=== PATIENT | female | born 1940 | race Caucasian/White ===

== ENCOUNTER → 2017-04-06 | Outpatient (CLI) | payer OTHER ==
--- NOTE | 2017-04-06 15:22 | MAMMOGRAPHY REPORT ---
BILATERAL DIGITAL SCREENING MAMMOGRAM WITH CAD: 04/06/2017 CLINICAL HISTORY: Routine screening. Patient has no complaints. TECHNIQUE: Current study was also evaluated with a Computer Aided Detection (CAD) system. Bilateral CC and MLO views were obtained. COMPARISON: Comparison is made to exams dated: 03/31/2016 mammogram, 03/26/2015 mammogram, 4 mammogram, 03/06/2014 mammogram, and 03/05/2013 mammogram - [facility]. BREAST COMPOSITION: There are scattered areas of fibroglandular density in both breasts. FINDINGS: No suspicious masses, calcifications, or areas of architectural distortion are noted in ei ther breast. There has been no significant interval change compared to prior exams. IMPRESSION: ACR BI-RADS CATEGORY 1: NEGATIVE There is no mammographic evidence of malignancy. A 1 year screening mammogram is recommended. The pa tient will receive written notification of the results. Approximately 10% of breast cancers are not detected with mammography. A negative mammographic report should not delay biopsy if a clinically suggestive mass is present. Laura Louis M.D. ah/:04/06/2017 12:40:47 [employer]: Oly Buck RT(R)(M), [facility] letter sent: Normal 1/2 BI-RADS Code: ACR BI-RADS Category 1: Negative
== END | disposition home or self-care (01) ==
LOC: C.MAMM 08:41
PROVIDERS: ATTEND Family Medicine
DX: Z12.31 Encounter for screening mammogram for malignant neoplasm of breast (principal)

== ENCOUNTER 2019-01-11 11:33 | Inpatient (IN) ==
[2019-01-11] MEDS ORDERED: SODIUM CHLORIDE 0.9% 500 ML IV SCH (12:00)
[2019-01-11 12:34] LABS: Basophils # (auto) 0.01 K/uL (0-0.2); Basophils % (auto) 0.1 %; Hematocrit (blood only) 37.5 % (37-47); Hemoglobin 12.6 g/dL (12.0-16.0); Immature Granulocytes # (auto) 0.04 K/uL (0.00-0.02); Immature Granulocytes % (auto) 0.3 %; Lymphocytes % (auto) 11.9 %; Mean Corpuscular Hgb Conc 33.6 g/dL (32-36); Mean Corpuscular Volume 88.9 fL (80-100); Mean Platelet Volume 11.6 fL (7.4-10.4); Monocytes # (auto) 1.92 K/uL (0.11-0.59); Monocytes % (auto) 13.5 %; Neutrophils # (auto) 10.58 K/uL (1.4-6.5); Neutrophils % (auto) 74.2 %; Platelet Count 179 K/uL (130-400); RDW Coefficient of Variation 13.8 % (11.5-14.5); RDW Standard Deviation 45.3 fL (36.4-46.3); Red Blood Count 4.22 M/uL (4.2-5.4); White Blood Count 14.25 K/uL (4.8-10.8)
--- NOTE | 2019-01-11 12:38 | Emergency Department Note ---
Entered by Steffany Tanner acting as a scribe for History of Present Illness General Chief complaint: Diarrhea Stated complaint: PAIN IN BACK, WEAK LEGS, DIARRHEA Time Seen by Provider: 01/11/19 11:40 Source: patient History of Present Illness Onset (ago): day(s) 1 Location: abdomen Pain Consistency: + other (persistent) Quality: + other (diarrhea) Associated symptoms: + other (positive intermittent abdominal cramping); no fever/chills and no nausea/vomiting The patient is a 78 year old female who presents to the Emergency Room with complaints of persistent diarrhea that began yesterday. The patient states that she had 3 or 4 episodes during the night, but denies blood in her stool or black stool. She states that she has had intermittent abdominal cramping during this time. The patient denies nausea, vomiting, and fevers. The patient states that no one else in her house has similar symptoms. The patient denies any recent unusual food or travel. She denies a history of C. diff, but states that she was on antibiotics about one week ago. The patient denies any abdominal surgeries. She denies any recent falls. Home Medications Home Medications Medication Instructions Recorded Confirmed Type azithromycin 250 mg PO DIRECTED 01/11/19 01/11/19 History prednisone 10 mg PO DIRECTED 01/11/19 01/11/19 History simvastatin 20 mg PO Q2D 01/11/19 01/11/19 History Allergies Allergy/AdvReac Type Severity Reaction Status Date / Time amoxicillin Allergy Unknown Unverified 01/11/19 12:40 bacitracin AdvReac Unknown Unverified 01/11/19 12:40 [From Triple Antibiotic] neomycin AdvReac Unknown Unverified 01/11/19 12:40 [From Triple Antibiotic] polymyxin B AdvReac Unknown Unverified 01/11/19 12:40 [From Triple Antibiotic] Past Med/Surg History Medical History Hyperlipidemia Family History Other No pertinent family history in first degree relatives Social History Feels Safe at Home: Yes Smoking Status: Never smoker Review of Systems See HPI for pertinent positives & negatives. and A total of 10 systems reviewed and were otherwise negative Physical Exam Vital Signs Vital Signs - 24 hr 01/11/19 11:35 01/11/19 12:13 01/11/19 13:39 Temperature 37.6 C H 38.0 C H Temperature Source Oral Oral Sepsis Recent Fever Within 48 Hours No Sepsis New/Unexplained Change in Mental Status No Sepsis Action Taken by Nursing No Action Required Pulse Rate 88 83 Pulse Rate [Finger] Pulse Rhythm Regular Pulse Rhythm [Finger] Pulse Strength [Finger] Respiratory Rate 18 Respiratory Effort / Characteristics Non-Labored Respiratory Depth Normal Respiratory Pattern Blood Pressure 126/68 Blood Pressure [Right Arm] Blood Pressure Mean 87 Blood Pressure Mean [Right Arm] Blood Pressure Position [Right Arm] Pulse Oximetry 97 98 Oxygen Delivery Method Room Air Room Air 01/11/19 14:38 Temperature Temperature Source Sepsis Recent Fever Within 48 Hours Sepsis New/Unexplained Change in Mental Status Sepsis Action Taken by Nursing Pulse Rate Pulse Rate [Finger] 80 Pulse Rhythm Pulse Rhythm [Finger] Regular Pulse Strength [Finger] Normal Respiratory Rate 18 Respiratory Effort / Characteristics Non-Labored Spontaneous Respiratory Depth Normal Respiratory Pattern Regular Blood Pressure Blood Pressure [Right Arm] 143/74 H Blood Pressure Mean Blood Pressure Mean [Right Arm] 97 Blood Pressure Position [Right Arm] Lying Pulse Oximetry 98 Oxygen Delivery Method Room Air General: Non-ill appearing older female in no acute distress. HEENT: Normal cephalic atraumatic. Pupils are equal round and reactive to light. Extraocular movements are intact. Oropharynx is pink with moist mucous membranes. No swelling of the mouth lips or tongue. Neck: Supple with a midline trachea. No meningeal signs or stiffness, no JVD or bruits. No Stridor. Chest: Clear to auscultation bilaterally. No wheezes or rhonchi. No increased work of breathing. Heart: regular rate and rhythm. Abdomen: Soft nontender, nondistended without rebound guarding or rigidity. Extremities: No cyanosis clubbing or edema. No calf tenderness or asymmetry. She does have some mild pain in the legs bilaterally with palpation peer Spine/Back. Non tender to palpation. No CVA tenderness Skin: Good turgor without rashes. Neurologic exam: Cranial nerves two through 12 are intact. Motor and sensation are intact and symmetrical throughout. She has intact reflexes in lower extremity's bilaterally. Course 1146: Past medical records reviewed. The patient was evaluated in room C3. A co mplete history and physical exam was performed. 1244: Upon reevaluation, the patient appears comfortable. The patient has yet to give a stool sample. 1350: The patient's temperature just went up to about 38 degrees. I ordered her Ibuprofen, more blood work, a CT scan, and a chest x-ray. 1500: I checked on and updated the patient. I recommended that the patient be further evaluated in the hospital. She is in agreement with the treatment plan. 1503: I discussed the case with Bridgette Mitchell PA-C who accepts the patient for further evaluation under Dr. Saldana Hospitalist care. Administered Medications Sodium Chloride (Nss 1000ml) 1,000 mls @ 125 mls/hr IV .Q8H EVELYN Stop: 02/10/19 13:44 Last Admin: 01/11/19 14:37 Dose: 125 mls/hr Documented by: [id number] Discontinued Medications Sodium Chloride (Nss) 500 mls @ 999 mls/hr IV .Q31M EVELYN Stop: 01/11/19 12:30 Last Infusion: 01/11/19 12:38 Dose: 0 mls/hr Documented by: [id number] Admin: 01/11/19 12:07 Dose: 999 mls/hr Documented by: [id number] Ibuprofen (Advil) 400 mg PO NOW STA Stop: 01/11/19 13:46 Last Admin: 01/11/19 14:37 Dose: 400 mg Documented by: [id number] Medical Decision Making Differential Diagnosis Differential diagnoses include diarrhea, dehydration, C. diff, infection, electrolyte or metabolic abnormality, and others were considered. Medical Records Attestation: I reviewed the patient's medical records. Home Medications Current Medication List: was personally reviewed by me Laboratory Data Attestation: I reviewed the patient's lab results. Result diagrams: 01/11/19 12:06 01/11/19 12:06 Lab Results 01/11/19 01/11/19 01/11/19 Range/Units 12:06 12:06 13:30 WBC 14.25 H (4.8-10.8) K/uL RBC 4.22 (4.2-5.4) M/uL Hgb 12.6 (12.0-16.0) g/dL Hct 37.5 (37-47) % MCV 88.9 (80-100) fL MCH 29.9 (25-34) pg MCHC 33.6 (32-36) g/dL RDW Std Deviation 45.3 (36.4-46.3) fL RDW Coeff of Joi 13.8 (11.5-14.5) % Plt Count 179 (130-400) K/uL MPV 11.6 H (7.4-10.4) fL Immature Gran % (Auto) 0.3 % Neut % (Auto) 74.2 % Lymph % (Auto) 11.9 % D[place]key % (Auto) 13.5 % Eos % (Auto) 0.0 % Baso % (Auto) 0.1 % Immature Gran # (Auto) 0.04 H (0.00-0.02) K/uL Neut # (Auto) 10.58 H (1.4-6.5) K/uL Lymph # (Auto) 1.70 (1.2-3.4) K/uL Dickey # (Auto) 1.92 H (0.11-0.59) K/uL Eos # (Auto) 0.00 (0-0.5) K/uL Baso # (Auto) 0.01 (0-0.2) K/uL Sodium 132 L (136-145) mmol/L Potassium 4.2 (3.5-5.1) mmol/L Chloride 100 (98-107) mmol/L Carbon Dioxide 26 (21-32) mmol/L Anion Gap 6.0 (3-11) BUN 16 (7-18) mg/dl Creatinine 0.75 (0.6-1.2) mg/dl Est Cr Clr Drug Dosing Not Reportable Est GFR ( Amer) 87.3 Est GFR (Non-Af Amer) 75.3 BUN/Creatinine Ratio 21.8 H (10-20) Glucose 198 H (70-99) mg/dl Calcium 9.3 (8.5-10.1) mg/dl Total Bilirubin 1.2 H (0.2-1) mg/dl AST 25 (15-37) U/L ALT 23 (12-78) U/L Alkaline Phosphatase 138 H (45-117) U/L Total Protein 7.1 (6.4-8.2) gm/dl Albumin 3.0 L (3.4-5.0) gm/dl Globulin 4.1 H (2.5-4.0) gm/dl Albumin/Globulin Ratio 0.7 L (0.9-2) Lipase 131 (73-393) U/L Urine Color Yellow Urine Appearance Cloudy A (Clear) Urine pH 7.0 (4.5-7.5) Ur Specific [place] 1.019 (1.000-1.030) Urine Protein 1+ H (Negative) Urine Glucose (UA) Trace H (Negative) Urine Ketones 1+ H (Negative) Urine Blood Negative (Negative) Urine Nitrite Negative (Negative) Urine Bilirubin Negative (Negative) Urine Urobilinogen Positive H (Negative) Ur Leukocyte Esterase Negative (Negative) Urine WBC (Auto) 1-5 (0-5) /hpf Urine RBC (Auto) 5-10 H (0-4) /hpf U Hyaline Cast (Auto) 1-5 (0-5) /lpf U Epithel Cells (Auto) 20-30 H (0-5) /lpf Urine Bacteria (Auto) Negative (Negative) Imaging Data Radiologist's Impression: Radiology results as stated below per my review and the radiologist's interpretation: XR chest 1V portable HISTORY: fever COMPARISON: None. FINDINGS: The heart is mildly enlarged. No pleural effusions. No pneumothorax. The upper lung zones are clear. Bibasilar linear densities and interstitial thickening. This is likely chronic. No evidence for pulmonary edema. IMPRESSION: Mild cardiomegaly and bibasilar interstitial thickening. This is likely chronic. Electronically signed by: John Young M.D. 01/11/2019 2:08 PM ABDOMEN AND PELVIS CT WITHOUT CONTRAST CT DOSE: 509.44 mGy.cm HISTORY: fever, diarrhea, abd pain TECHNIQUE: Multiaxial CT images of the abdomen and pelvis were performed without contrast. A dose lowering technique was utilized adhering to the principles of ALARA. COMPARISON STUDY: None. FINDINGS: Partially visualized hypodense lesion within the anterior mediastinum and extending along the left heart border. This measures up to 7.3 cm. This favors a thymic or pericardial cyst. Groundglass densities at the lung bases. These are nonspecific and may represent dependent change or a low-grade pneumonitis. No pneumoperitoneum. No pneumatosis. Old mild superior endplate compression deformity at T11. No acute fractures identified. A 4 cm calcified uterine fibroid. The bladder is unremarkable. Nodular contour to the liver consistent with cirrhosis. The unenhanced spleen, adrenal glands, gallbladder, and pancreas are unremarkable. Mild bilateral perinephric edema. This is likely chronic. There is a punctate stone within the right kidney. No left renal calculi. No hydronephrosis. No retroperitoneal lymphadenopathy. Suboptimal evaluation for bowel pathology due to the lack of intravenous and oral contrast. However, there is no definite bowel wall thickening or obstruction. Normal appendix. A few colonic diverticula. No evidence for diverticulitis. IMPRESSION: 1. Groundglass densities at the lung bases. These are nonspecific and may represent dependent change or a low-grade pneumonitis. 2. No definite bowel wall thickening or obstruction. 3. A partially visualized 7.3 cm hypodense lesion within the anterior mediastinum extending along the left heart border. This favors a thymic or pericardial cyst. 4. Right-sided nephrolithiasis. No hydronephrosis. 5. Normal appendix. 6. Cirrhotic liver. Electronically signed by: John Young M.D. 01/11/2019 2:45 PM Blood Pressure Blood Pressure Findings: Normal blood pressure MDM Narrative This patient comes in as described above she had diarrhea since yesterday. No blood in her stool. No sick contacts or recent travel. No fever or chills. S he did use antibiotics a couple weeks ago but has no previous history of C. difficile. IV access established she was ordered IV hydration. Blood work was obtained her white count is mildly elevated 14,000. Stool studies ordered as well including C. difficile. She was unable to provide a stool sample and then while she was here she also spiked a temperature in light of this I did have blood cultures and lactic acid. She complains that her legs hurt when she moves. She also has a fever that could be contributing to this. She seems diffusely weak in the legs but I think it is mostly secondary to pain. Her white count was elevated 14. Urinalysis does not suggest a UTI. She is no significant electrolyte or metabolic abnormalities. CAT scan of her abdomen shows some chronic findings but no acute findings to explain her symptoms. Chest x-ray was negative. I did not give her antibiotics at this point as she did have diarrhea and I was concerned that it could be C. difficile. She will need further work-up. In regards her leg pain, this may need further work-up. I do not think that this is a blood clot, she has no tenderness in her calves and is both legs. It may be more myalgias from having a fever or illness. I do not think it is likely related to her back such as epidural abscess but she may need further imaging in the hospital if deemed necessary or her symptoms worsen. I do think she should be admitted/observed and have consulted the hospitalist to see her in the ER for these measures. Impression & Plan Febrile illness, Diarrhea, Weakness, Bilateral leg pain Discharge Plan Visit Data Chief Complaint: Diarrhea Stated Complaint: PAIN IN BACK, WEAK LEGS, DIARRHEA ED Provider: Matt Herron Discharge Problem: Febrile illness, Diarrhea, Weakness, Bilateral leg pain Patient Disposition: Being Evaluated by Hospitalist Forms Stand Alone Forms: My [facility] Prescriptions Prescriptions: No Action prednisone 10 mg tablet 10 mg PO DIRECTED RF: 0 azithromycin 250 mg tablet 250 mg PO DIRECTED RF: 0 simvastatin 20 mg tablet 20 mg PO Q2D RF: 0 Referrals Referrals: Gigi Sarmiento MD [Primary Care Provider] - Discharge Problem: Diarrhea Qualifiers: Diarrhea type: unspecified type Qualified Code(s): R19.7 - Diarrhea, unspecified The scribe's documentation has been prepared under my direction and personally reviewed by me in its entirety. I confirm that the note above accurately reflects all work, treatment, procedures, and medical decision making performed by me.
[2019-01-11 12:52] LABS: Alanine Aminotransferase 23 U/L (12-78); Aspartate Aminotransferase 25 U/L (15-37); BUN Creatinine Ratio 21.8 (10-20); Blood Urea Nitrogen 16 mg/dl (7-18); Calcium 9.3 mg/dl (8.5-10.1); Carbon Dioxide 26 mmol/L (21-32); Chloride 100 mmol/L (98-107); Est GFR (African American) 87.3; Est GFR (Non-African American) 75.3; Glucose 198 mg/dl (70-99); Potassium 4.2 mmol/L (3.5-5.1); Sodium 132 mmol/L (136-145)
[2019-01-11 12:54] LABS: Albumin Globulin Ratio 0.7 (0.9-2); Alkaline Phosphatase 138 U/L (45-117); Bilirubin,Total 1.2 mg/dl (0.2-1); Globulin 4.1 gm/dl (2.5-4.0); Total Protein 7.1 gm/dl (6.4-8.2)
[2019-01-11] MEDS ORDERED: IBUPROFEN 200 MG TAB PO STA (13:45)
[2019-01-11] MEDS ORDERED: SODIUM CHLORIDE 0.9% 1000ML 1,000 ML IV SCH ×2 (13:45→18:30)
[2019-01-11 13:47] LABS: Appearance Urine Cloudy (Clear); Bacteria Urine Automated Negative (Negative); Bilirubin Urine Negative (Negative); Blood Urine Negative (Negative); Color Urine Yellow; Epithelial Cell Urine Auto 20-30 /lpf (0-5); Glucose Urine UA Trace (Negative); Ketones Urine 1+ (Negative); Leukocyte Esterase Urine Negative (Negative); Nitrite Urine Negative (Negative); Protein Urine 1+ (Negative); Specific Gravity Urine 1.019 (1.000-1.030); Urobilinogen Urine Positive (Negative)
--- NOTE | 2019-01-11 14:10 | XRay Report ---
XR chest 1V portable HISTORY: fever COMPARISON: None. FINDINGS: The heart is mildly enlarged. No pleural effusions. No pneumothorax. The upper lung zones a re clear. Bibasilar linear densities and interstitial thickening. This is likely chronic. No evidence for pulmonary edema. IMPRESSION: Mild cardiomegaly and bibasilar interstitial thickening. This is likely chronic. Electronically signed by: John Young M.D. 01/11/2019 2:08 PM
--- NOTE | 2019-01-11 14:46 | CT Scan Report ---
ABDOMEN AND PELVIS CT WITHOUT CONTRAST CT DOSE: 509.44 mGy.cm HISTORY: fever, diarrhea, abd pain TECHNIQUE: Multiaxial CT images of the abdomen and pelvis were performed without contrast. A dose lo wering technique was utilized adhering to the principles of ALARA. COMPARISON STUDY: None. FINDINGS: Partially visualized hypodense lesion within the anterior mediastinum and extending along t he left heart border. This measures up to 7.3 cm. This favors a thymic or pericardial cyst. Groundgla ss densities at the lung bases. These are nonspecific and may represent dependent change or a low-gra de pneumonitis. No pneumoperitoneum. No pneumatosis. Old mild superior endplate compression deformity at T11. No acute fractures identified. A 4 cm calcified uterine fibroid. The bladder is unremarkable . Nodular contour to the liver consistent with cirrhosis. The unenhanced spleen, adrenal glands, gall bladder, and pancreas are unremarkable. Mild bilateral perinephric edema. This is likely chronic. The re is a punctate stone within the right kidney. No left renal calculi. No hydronephrosis. No retroper itoneal lymphadenopathy. Suboptimal evaluation for bowel pathology due to the lack of intravenous and oral contrast. However, there is no definite bowel wall thickening or obstruction. Normal appendix. A few colonic diverticula. No evidence for diverticulitis. IMPRESSION: 1. Groundglass densities at the lung bases. These are nonspecific and may represent dependent change or a low-grade pneumonitis. 2. No definite bowel wall thickening or obstruction. 3. A partially visualized 7.3 cm hypodense lesion within the anterior mediastinum extending along the left heart border. This favors a thymic or pericardial cyst. 4. Right-sided nephrolithiasis. No hydronephrosis. 5. Normal appendix. 6. Cirrhotic liver. Electronically signed by: John Young M.D. 01/11/2019 2:45 PM
--- NOTE | 2019-01-11 16:11 | History & Physical Report ---
Date of Service January 11, 2019 Assessment & Plan (1) Fever: (2) Back pain: (3) Bilateral leg pain: Patient presented with onset low back pain 3 days ago with bilateral leg pain and BLE weakness. Difficulty ambulating. C/O chills x couple of days. Reports 4 episodes of diarrhea last night with stool incontinence. Denies urinary incontinence, saddle paresthesias In ER patient febrile at 38C, P: 88, R: 18, BP: 126/68, 97% on RA. WBC: 14, lactate: 1.0 Meet SIRS criteria -In ER was given ibuprofen, 500 mL bolus NSS then ran out 125 mL/hr -Blood cultures pending -Obtain CK as patient on statin -MRI lumbar spine rule out spinal abscess -Rocephin, vancomycin -Fall precautions -PT/OT -Monitor CBC, CMP (4) Diarrhea: Reported 4 episodes of diarrhea last night. Took Pepto-Bismol this morning and no further diarrhea. Denies abdominal pain. CT abdomen and pelvis without noted bowel abnormality -Obtain C. difficile, stool culture if continued diarrhea -Clear liquids for now (5) Hyperglycemia: Glucose: 198. Patient recently finished prednisone taper for congestion -A1c in a.m. -Monitor BSG's -NovoLog sliding scale per protocol (6) Mediastinal mass: CT abdomen/pelvis: A partially visualized 7.3 cm hypodense lesion within the anterior mediastinum extending along the left heart border. This favors a thymic or pericardial cyst. -Further outpatient work-up (7) Asthma: No shortness of breath, wheezing -Continue albuterol as needed (8) Dyslipidemia: -Hold statin currently pending CK DVT Prophylaxis -Lovenox SQ Full Code as per discussion with pt, however reports wants limited resuscitation attempt and if initially not successful wants to discontinue attempt. Follows with Dr Sarmiento for routine care Pt was seen and care coordinated with Dr Lewis. See addendum History of Present Illness Chief Complaint: BLE pain and weakness Primary Care Provider: Gigi Sarmiento MD Pt is 78 y/o F with PMH asthma, dyslipidemia presented to ER with c/o BLE pain and weakness x 3 days. Patient states started out with low back pain and then the following day with bilateral hip and leg pain. Today with pain from bilateral knees to feet. Patient states her legs feel weak and she is having trouble ambulating and needing assistance. Today she was unable to get herself out of chair. Reports today noticed some paresthesias to left foot however relieved after she took her shoe off. Patient states last night started with diarrhea and had 4-5 episodes and reports during that time had bowel incontinence. She took Pepto-Bismol today and no further diarrhea. Denies urinary incontinence, denies saddle paresthesias. Patient reports past several days has been having chills and LUCAS's. She reports taking her temperature not noting any fever. Pt states on 12/30/18 took Z-pack and prednisone for congestion. She reports didn't have a cough however "spit" out phlegm. Denies SOB or wheezing at that time or recently. Denies any other recent illnesses. 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 Denies any noted injury and denies any falls. Denies any hx back surgery. Denies recent travel, ill contacts, known insect bites. Denies diaphoresis, N/V, melena, hematochezia, dizziness, syncope, vision changes, neck pain, CP, SOB, orthopnea, palpitations, cough, sore throat, choking, otalgia, abdominal pain, extremity edema, rashes, urinary symptoms. Allergies Allergy/AdvReac Type Severity Reaction Status Date / Time amoxicillin Allergy Unknown Unverified 01/11/19 12:40 bacitracin AdvReac Unknown Unverified 01/11/19 12:40 [From Triple Antibiotic] neomycin AdvReac Unknown Unverified 01/11/19 12:40 [From Triple Antibiotic] polymyxin B AdvReac Unknown Unverified 01/11/19 12:40 [From Triple Antibiotic] Home Medications Home Medications Medication Instructions Recorded Confirmed Type albuterol sulfate 2 puff INHALATION QID PRN 01/11/19 01/11/19 History azithromycin 250 mg PO DIRECTED 01/11/19 01/11/19 History prednisone 10 mg PO DIRECTED 01/11/19 01/11/19 History simvastatin 20 mg PO Q2D 01/11/19 01/11/19 History Past Med/Surg History Medical History Asthma (Chronic) Dyslipidemia (Chronic) Hyperlipidemia Surgical History History of cataract surgery (Chronic) Hx of tonsillectomy (Chronic) Family History Grandmother (Maternal) Stroke Father Lung cancer Mother Liver cancer Other Diabetes Social History Preferred Language: Lithuanian 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 Beliefs That Will Affect Care: None Current Living Situation: Spouse and Family Other Information That Helps Us Care for You: No Feels Safe at Home: Yes Safety Concerns: Feels Safe At This Time Smoking Status: Never smoker Hx Alcohol Use: No Hx Substance Use: No Review of Systems Review of Systems: All systems reviewed & are unremarkable except as noted in HPI & below Physical Exam Physical Exam: General: no acute distress, WDWN Head: normocephalic, atraumatic Eyes: PERRL, EOM's intact, conjunctiva non-injected, anicteric ENT: hard of hearing, normal inspection external ears, nose, mucous membranes dry Neck: supple, trachea midline, non-tender, ROM intact to flexion, extension and rotation Lungs: clear, no respiratory distress, no wheezing/rhonchi/rales CV: RRR, no murmur, no pretibial edema Abd: normal BS, soft, non-tender, no CVA tenderness to percussion Back: no discoloration, +tenderness to palpation lower lumbar spinous processes, limited movement of back secondary to discomfort Ext: no cyanosis or erythema, Bilateral hips with flexion and internal and external rotation intact with tenderness reproduced to lower legs. No hip tende rness to palpation, flexion and extension of bilateral knees intact with pain reproduced to knees and calves; distal pulses palpable, sensation to light touch intact and equal bilaterally Neuro: A&O x 3, no focal deficits noted, normal affect Skin: hot, dry Results & Data Vital Signs (Past 12 Hours) Vital Signs Temp Pulse Pulse Resp BP BP Pulse Ox 01/11/19 14:38 80 18 143/74 H 98 01/11/19 13:39 38.0 C H 01/11/19 12:13 83 98 01/11/19 11:35 37.6 C H 88 18 126/68 97 Laboratory Results Short CBC 01/11/19 Range/Units 12:06 WBC 14.25 H (4.8-10.8) K/uL Hgb 12.6 (12.0-16.0) g/dL Hct 37.5 (37-47) % Plt Count 179 (130-400) K/uL BMP 01/11/19 12:06 Sodium 132 L Potassium 4.2 Chloride 100 Carbon Dioxide 26 BUN 16 Creatinine 0.75 Glucose 198 H Calcium 9.3 Cardiac Enzymes 01/11/19 Range/Units 12:06 Total Creatine Kinase 15 L (26-192) U/L Liver Function 01/11/19 Range/Units 12:06 Total Bilirubin 1.2 H (0.2-1) mg/dl AST 25 (15-37) U/L ALT 23 (12-78) U/L Alkaline Phosphatase 138 H (45-117) U/L Albumin 3.0 L (3.4-5.0) gm/dl Urine 01/11/19 Range/Units 13:30 Urine Color Yellow Urine Appearance Cloudy A (Clear) Urine pH 7.0 (4.5-7.5) Ur Specific [place] 1.019 (1.000-1.030) Urine Protein 1+ H (Negative) Urine Glucose (UA) Trace H (Negative) Diagnostic Findings CXR: IMPRESSION: Mild cardiomegaly and bibasilar interstitial thickening. This is likely chronic. CT ABD/PEVLIS W/O CONTRAST IMPRESSION: 1. Groundglass densities at the lung bases. These are nonspecific and may represent dependent change or a low-grade pneumonitis. 2. No definite bowel wall thickening or obstruction. 3. A partially visualized 7.3 cm hypodense lesion within the anterior mediastinum extending along the left heart border. This favors a thymic or pericardial cyst. 4. Right-sided nephrolithiasis. No hydronephrosis. 5. Normal appendix. 6. Cirrhotic liver. Supervising Physician Co-Signing Physician Notes I have seen and examined the patient and have discussed the case with the provider above. I agree with the assessment and plan as stated. 78 yo female with a strong, active disposition presented reluctantly with severe leg pain and weakness unable to walk at home. She appeared dehydrated to her granddaughter who lives with her. She reports excessive diarrhea that was watery overnight. Water source at the house is a reservoir of untreated water from a natural spring. She ate homemade chicken soup with canned chicken. Everyone else who ate the soup was not ill. She has not had diarrhea in several hours and is feeling better since the IVF given in the ER. She reports a resolution of her lower back pain but states that her legs are still painful and weak. She hasn't had issues with back pain in the past. She also reports two days of chills but no fever and her temperature is borderline in the ER. Differential included but was not limited to spinal infection such as discitis, osteomyelitis or epidural abscess, lumbar disc hermiation, arthritis flare, or repetitive motion injury. We also considered myalgias from statin therapy and Guillain Ida after recent illness, however, CK was normal and she had reflexes with the etiology of symptoms starting in her back and working distally. Prior to the MRI she was started on Vanc and Cetriaxone, but after the MRI returned negative for infection and she appeared clinically better with the IVF, the antibiotics were stopped. Will cont to monitor and have Ortho Spine see her in am. PT/OT consults are also ordered. DO Joshua (1) Diarrhea Diarrhea type: unspecified type Qualified Code(s): R19.7 - Diarrhea, unspecified
[2019-01-11] MEDS ORDERED: CONSULT PHARMACY STA (17:02)
[2019-01-11 17:07] LABS: Creatine Kinase 15 U/L (26-192)
[2019-01-11] MEDS ORDERED: ACETAMINOPHEN 325 MG TAB PO PRN (18:04)
[2019-01-11] MEDS ORDERED: ALBUTEROL HFA 8 GM INHALER INH PRN (18:04)
[2019-01-11] MEDS ORDERED: GADOBUTROL 7.5ML VIAL IV PRN (18:20)
[2019-01-11] MEDS ORDERED: PATIENT'S HEIGHT AND/OR WEIGHT NEEDED SCH (18:45)
[2019-01-11] MEDS ORDERED: VANCOMYCIN HCL 1,500 MG in SODIUM CHLORIDE 0.9% 500 ML IV STA (18:53)
[2019-01-11] MEDS ORDERED: VANCOMYCIN CONSULT ACTIVE PRN (18:54)
[2019-01-11] MEDS ORDERED: DEXTROSE 50% 50 ML SYRINGE IV PRN (19:02)
[2019-01-11] MEDS ORDERED: GLUCOSE 10 TABS/TUBE PO PRN (19:02)
[2019-01-11] MEDS ORDERED: GLUCOSE 40% GEL 15 GM TUBE PO PRN (19:02)
[2019-01-11] MEDS ORDERED: CARBOHYDRATES FOR HYPOGLYCEMIA PO PRN (19:02)
[2019-01-11] MEDS ORDERED: GLUCAGON FOR INJ 1 MG VIAL SQ PRN (19:02)
--- NOTE | 2019-01-11 19:36 | Magnetic Resonance Report ---
MR lumbar spine wo/w con CLINICAL HISTORY: 78 years-old Female with back pain, fever. Acute low back pain with fever COMPARISON: CT abdomen and pelvis of same day TECHNIQUE: Multiplanar, multi sequence MRI of the lumbar spine was performed both with and without th e use of 6.5 mL Gadavist FINDINGS: Mildly distended urinary bladder lumen. No acute abnormalities identified on the large lengi-fo-cpwe warranty coordinator localizer images. Heterogeneous appearance of the uterine fundus suggestive of uterine fibroids . No acute fracture or subluxation. L4 vertebral body hemangioma extends into the right pedicle measu ring up to 1.3 cm. Mild soft tissue edema with synovial cysts noted at L3-L4, L4-L5 and L5-S1. Additi onally, there is mild bone marrow edema about the right L3-L4 facets. There is mild enhancement about the right L3-L4 facet effusion. Nonspecific enhancement about the L1-L2 interspinous tissues No evid ence of acute discitis/osteomyelitis or acute fracture. Remote superior endplate compression of appro ximately 20% involves the T11 vertebral body. 5 mm anterolisthesis L4 on L5 is likely secondary to lo ng-standing facet arthrosis. Conus medullaris terminates at T12. Signal within the imaged thoracic sp inal cord and cauda equina appears to be within normal limits. T12-L1: Mild intervertebral disc space narrowing with moderate facet arthrosis. No central canal or foraminal narrowing. L1-L2: Mild spondylitic spurring with moderate facet arthrosis and ligamentum flavum thickening with trace facet effusions. Central canal and neuroforamina appear generally patent. L2-L3: Mild disc space narrowing with spondylitic spurring, small posterior annular disc bulge with severe facet arthrosis, ligamentum flavum thickening and trace facet effusions. Flattening of the lisa tral thecal sac without concentric canal stenosis. Mild bilateral foraminal narrowing. L3-L4: Mild disc space narrowing with anterolisthesis as above. Spondylitic spurring with circumfere ntial annular disc bulge, ligament of the thickening, severe facet arthrosis with trace facet effusio ns. AP dimension of the thecal sac measures 7 mm. Moderate central canal with mild bilateral foramina l narrowing. L4-L5: Mild disc space narrowing with circumferential annular disc bulge, mild spondylitic spurring, severe facet arthrosis with ligamentum flavum thickening. Small left and trace right facet effusions . Small right paracentral disc protrusion. Moderate to severe central canal stenosis with moderate ri ght lateral recess, mild to moderate right and moderate left foraminal narrowing. L5-S1: Mild spondylitic spurring with severe facet arthrosis. No central canal or foraminal narrowin g. IMPRESSION: 1. No acute fracture, subluxation or evidence of acute discitis/osteomyelitis. 2. Mild soft tissue and bone marrow edema about the right L3-L4 facet with trace effusion demonstrati ng peripheral enhancement, likely on a degenerative/reactive basis. Acute septic facet arthrosis cons idered less likely. 3. Multilevel discogenic degenerative changes and facet arthrosis as above. 4. Moderate L3-L4 with moderate to severe L4-L5 central canal stenosis. 5. Multilevel foraminal narrowing, moderate on the left at L4-L5. The above report was generated using voice recognition software. It may contain grammatical, syntax o r spelling errors. Electronically signed by: Jeyson Dumont M.D. 01/11/2019 7:34 PM
--- NOTE | 2019-01-11 19:50 | Pharmacy Report ---
Pharmacy Abx Dose Short Note - Date of Service January 11, 2019 - Assessment & Plan Assessment Pt is ordered vancomycin and Rocephin with an empiric indication. Pt population p'kinetics: t1/2=15, ke 0.0459. No trough ordered, please order a trough if treatment is to continue. Plan Vancomycin * 1500mg(23mg/kg) IV x1 * then vancomycin (15mg/kg) q18, 48hr d/c date * no trough ordered Pharmacy will continue to follow and will adjust dose/frequency as necessary. Thank you.
[2019-01-11] MEDS: cefTRIAXone SODIUM 2,000 MG in DEXTROSE 5% 50 ML IV SCH ×2 (20:13→20:17)
[2019-01-11] MEDS: INSULIN ASPART 100 UNITS/ML 3 ML PEN SC SCH (20:18)
[2019-01-11] MEDS ORDERED: TRAMADOL HCL 50 MG TABLET PO PRN (20:38)
[2019-01-11] MEDS: CALCIUM CARBONATE 500 MG CHEWABLE TAB PO PRN (20:56)
[2019-01-11] MEDS ORDERED: cefTRIAXone SODIUM 2,000 MG in DEXTROSE 5% 50 ML IV SCH (21:00)
[2019-01-11] MEDS: ACETAMINOPHEN 500 MG TAB PO SCH (21:31)
[2019-01-12] MEDS: ACETAMINOPHEN 500 MG TAB PO SCH (06:32)
[2019-01-12 07:24] LABS: Basophils # (auto) 0.02 K/uL (0-0.2); Basophils % (auto) 0.2 %; Eosinophils # (auto) 0.03 K/uL (0-0.5); Eosinophils % (auto) 0.3 %; Hematocrit (blood only) 37.8 % (37-47); Hemoglobin 12.6 g/dL (12.0-16.0); Immature Granulocytes # (auto) 0.04 K/uL (0.00-0.02); Immature Granulocytes % (auto) 0.4 %; Lymphocytes % (auto) 15.5 %; Mean Corpuscular Hgb Conc 33.3 g/dL (32-36); Mean Platelet Volume 11.3 fL (7.4-10.4); Monocytes # (auto) 1.48 K/uL (0.11-0.59); Monocytes % (auto) 15.3 %; Neutrophils # (auto) 6.59 K/uL (1.4-6.5); Neutrophils % (auto) 68.3 %; Platelet Count 160 K/uL (130-400); RDW Coefficient of Variation 13.8 % (11.5-14.5); RDW Standard Deviation 45.8 fL (36.4-46.3); White Blood Count 9.66 K/uL (4.8-10.8)
[2019-01-12 07:51] LABS: Albumin Level 2.8 gm/dl (3.4-5.0); BUN Creatinine Ratio 19.5 (10-20); Calcium 9.4 mg/dl (8.5-10.1); Creatinine Clr Calc Pharmacy 59.7 ml/min; Est GFR (African American) 99.8; Est GFR (Non-African American) 86.1; Potassium 3.9 mmol/L (3.5-5.1)
[2019-01-12 08:04] LABS: Albumin Globulin Ratio 0.7 (0.9-2); Total Protein 6.8 gm/dl (6.4-8.2)
[2019-01-12] MEDS: CALCIUM CARBONATE 500 MG CHEWABLE TAB PO PRN (08:28)
[2019-01-12] MEDS: INSULIN ASPART 100 UNITS/ML 3 ML PEN SC SCH (08:31)
--- NOTE | 2019-01-12 11:58 | Orthopedic Consultation ---
Date of Consultation January 12, 2019 Assessment & Plan (1) Spinal stenosis, lumbar region with neurogenic claudication: I discussed with the patient and family her MRI findings. She has severe spinal stenosis L3-4 moderate to severe stenosis L4-5 with evidence of instability. I described to the family that this is most likely the etiology of her symptoms. Her excessive activity over the past week clearly exacerbated her underlying condition. If the symptoms return to have her see an interventional pain management physician for possible epidural injections but ultimately she may require surgical decompression and fusion. Present on Admission?: Yes History of Present Illness Reason for Consultation: Back and bilateral leg pain with weakness Attending Physician: Lasha Antoine MD History of Present Illness This is a very active 78-year-old female. She presents with 3 to 4 days of decline in status beginning with back pain and subsequent lower extremity weakness. She was admitted yesterday and underwent evaluation. Today she states she is been up and ambulating the halls with a therapist and feels markedly improved. She denies any back pain this morning. She denies any leg pain this morning. Her family is at the bedside and helps provide accurate h istory. 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 Allergies Allergy/AdvReac Type Severity Reaction Status Date / Time amoxicillin Allergy Unknown Unverified 01/11/19 12:40 bacitracin AdvReac Unknown Unverified 01/11/19 12:40 [From Triple Antibiotic] neomycin AdvReac Unknown Unverified 01/11/19 12:40 [From Triple Antibiotic] polymyxin B AdvReac Unknown Unverified 01/11/19 12:40 [From Triple Antibiotic] Home Medications Home Medications Medication Instructions Recorded Confirmed Type albuterol sulfate 2 puff INHALATION QID PRN 01/11/19 01/11/19 History azithromycin 250 mg PO DIRECTED 01/11/19 01/11/19 History prednisone 10 mg PO DIRECTED 01/11/19 01/11/19 History simvastatin 20 mg PO Q2D 01/11/19 01/11/19 History Patient History Medical History Asthma (Chronic) Dyslipidemia (Chronic) Hyperlipidemia Surgical History History of cataract surgery (Chronic) Hx of tonsillectomy (Chronic) Family History Grandmother (Maternal) Stroke Father Lung cancer Mother Liver cancer Other Diabetes Social History Preferred Language: [place] Korean Communication Ability: Effective Stock 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 She is regional strength testing lower extremities. Results & Data Vital Signs (Past 12 Hours) Vital Signs Temp Pulse Resp BP Pulse Ox 01/12/19 07:41 36.5 C 67 20 138/74 96
[2019-01-12] MEDS ORDERED: VANCOMYCIN HCL 1,000 MG in SODIUM CHLORIDE 0.9% 250 ML IV SCH (12:00)
--- NOTE | 2019-01-12 12:31 | Hospitalist Progress Note ---
Date of Service January 12, 2019 Assessment & Plan (1) Fever: (2) Back pain: (3) Bilateral leg pain: Patient presented with onset low back pain 3 days ago with bilateral leg pain and BLE weakness. Difficulty ambulating. C/O chills x couple of days. Reports 4 episodes of diarrhea last night with stool incontinence. Denies urinary incontinence, saddle paresthesias In ER patient febrile at 38C, P: 88, R: 18, BP: 126/68, 97% on RA. WBC: 14, lactate: 1.0 Meet SIRS criteria MRI lumbar spine: IMPRESSION: 1. No acute fracture, subluxation or evidence of acute discitis/osteomyelitis. 2. Mild soft tissue and bone marrow edema about the right L3-L4 facet with trace effusion demonstrating peripheral enhancement, likely on a degenerative/reactive basis. Acute septic facet arthrosis considered less likely. 3. Multilevel discogenic degenerative changes and facet arthrosis as above. 4. Moderate L3-L4 with moderate to severe L4-L5 central canal stenosis. 5. Multilevel foraminal narrowing, moderate on the left at L4-L5. evaluated by Ortho Spine- Dr. Mcdermott recommend conservative management for now, but may eventually need epidural injection by Pain Management Service or ultimately, Surgery symptoms resolved on discharge day patient and family requesting discharge advised PRN Tylenol, Ibuprofen (1-2x /day) no heavy exertion ff up with PCP this week (4) Diarrhea: Reported 4 episodes of diarrhea overnight. Took Pepto-Bismol this morning and no further diarrhea. Denies abdominal pain. CT abdomen and pelvis without noted bowel abnormality C diff stool : negative diarrhea resolved (5) Hyperglycemia: Glucose: 198. Patient recently finished prednisone taper for congestion -A1c : pending (6) Mediastinal mass: CT abdomen/pelvis: A partially visualized 7.3 cm hypodense lesion within the anterior mediastinum extending along the left heart border. This favors a thymic or pericardial cyst. -Further outpatient work-up (7) Asthma: No shortness of breath, wheezing -Continue albuterol as needed (8) Dyslipidemia: on Statin discussed case with patient and family re: plan of care recommended at least 1 more night of observation they requested to be discharged today all questions answered, they are understanding, agreeable and comfortable with the plan of care Subjective ff up for back pain seen sitting up in bed, in good spirits family members at the bedside patient states she feels much better overall denies back pain, lower extremity pain or weakness denies cough, dyspnea, chest pain no fever/chills, abdominal pain, nausea, changes with urination or BM states she is back to her baseline states she is ready and would like to be discharged today family agrees Review of Systems Review of Systems: All systems reviewed & are unremarkable except as noted in HPI & below Physical Exam Physical Exam: General- oriented x 3, not in distress, speaks in sentences with no effort or accessory muscle use Head- atraumatic Eyes- PERRL, EOMI, anicteric ENT- oropharynx clear Neck- supple, no JVD, no adenopathy, no thyromegaly; carotids +2/2, no bruits appreciated Lungs- clear to auscultation bilaterally, no rales/wheezes Heart- normal rate, regular rhythm; no murmur, no gallop, no rub appreciated Abdomen- normal bowel sounds, nondistended, soft, nontender, no masses or hepatosplenomegaly Extremities- no pretibial edema, no calf tenderness; peripheral pulses intact Neuro- alert, oriented x 3; CN 2-12 grossly intact; motor 5/5 bilaterally;sensation 100% on all extremities; no other gross focal neurologic deficits Skin- warm & dry Results & Data Vital Signs (Past 12 Hours) Vital Signs Temp Pulse Resp BP Pulse Ox 01/12/19 07:41 36.5 C 67 20 138/74 96 Laboratory Results Laboratory Results - last 24 hr 01/11/19 01/12/19 01/12/19 20:04 06:30 06:30 WBC RBC Hgb Hct MCV MCH MCHC RDW Std Deviation RDW Coeff of Joi Plt Count MPV Immature Gran % (Auto) Neut % (Auto) Lymph % (Auto) [place] % (Auto) Eos % (Auto) Baso % (Auto) Immature Gran # (Auto) Neut # (Auto) Lymph # (Auto) [place] # (Auto) Eos # (Auto) Baso # (Auto) Sodium Potassium Chloride Carbon Dioxide Anion Gap BUN Creatinine Est Cr Clr Drug Dosing Est GFR ( Amer) Est GFR (Non-Af Amer) BUN/Creatinine Ratio Glucose POC Glucose 163 H Estimat Average Glucose Hemoglobin A1c Calcium Total Bilirubin AST ALT Alkaline Phosphatase Total Protein Albumin Globulin Albumin/Globulin Ratio Stl C. diff Tox B Gene Negative Cdiff Gene Giardia Antigen Pending 01/12/19 01/12/19 01/12/19 06:59 06:59 06:59 WBC 9.66 RBC 4.20 Hgb 12.6 Hct 37.8 MCV 90.0 MCH 30.0 MCHC 33.3 RDW Std Deviation 45.8 RDW Coeff of Joi 13.8 Plt Count 160 MPV 11.3 H Immature Gran % (Auto) 0.4 Neut % (Auto) 68.3 Lymph % (Auto) 15.5 [place] % (Auto) 15.3 Eos % (Auto) 0.3 Baso % (Auto) 0.2 Immature Gran # (Auto) 0.04 H Neut # (Auto) 6.59 H Lymph # (Auto) 1.50 [place] # (Auto) 1.48 H Eos # (Auto) 0.03 Baso # (Auto) 0.02 Sodium 139 D Potassium 3.9 Chloride 108 H Carbon Dioxide 26 Anion Gap 5.0 BUN 12 Creatinine 0.60 Est Cr Clr Drug Dosing 59.7 Est GFR ( Amer) 99.8 Est GFR (Non-Af Amer) 86.1 BUN/Creatinine Ratio 19.5 Glucose 117 H POC Glucose Estimat Average Glucose Pending Hemoglobin A1c Pending Calcium 9.4 Total Bilirubin 1.0 AST 44 H ALT 33 Alkaline Phosphatase 142 H Total Protein 6.8 Albumin 2.8 L Globulin 4.0 Albumin/Globulin Ratio 0.7 L Stl C. diff Tox B Gene Giardia Antigen 01/12/19 01/12/19 07:53 11:49 WBC RBC Hgb Hct MCV MCH MCHC RDW Std Deviation RDW Coeff of Joi Plt Count MPV Immature Gran % (Auto) Neut % (Auto) Lymph % (Auto) [place] % (Auto) Eos % (Auto) Baso % (Auto) Immature Gran # (Auto) Neut # (Auto) Lymph # (Auto) [place] # (Auto) Eos # (Auto) Baso # (Auto) Sodium Potassium Chloride Carbon Dioxide Anion Gap BUN Creatinine Est Cr Clr Drug Dosing Est GFR ( Amer) Est GFR (Non-Af Amer) BUN/Creatinine Ratio Glucose POC Glucose 106 H 79 Estimat Average Glucose Hemoglobin A1c Calcium Total Bilirubin AST ALT Alkaline Phosphatase Total Protein Albumin Globulin Albumin/Globulin Ratio Stl C. diff Tox B Gene Giardia Antigen (1) Diarrhea Diarrhea type: unspecified type Qualified Code(s): R19.7 - Diarrhea, unspecified
--- NOTE | 2019-01-12 17:15 | Discharge Summary ---
Date of Service January 12, 2019 Admission HPI Per Admitting Provider Pt is 78 y/o F with PMH asthma, dyslipidemia presented to ER with c/o BLE pain and weakness x 3 days. Patient states started out with low back pain and then the following day with bilateral hip and leg pain. Today with pain from bilateral knees to feet. Patient states her legs feel weak and she is having trouble ambulating and needing assistance. Today she was unable to get herself out of chair. Reports today noticed some paresthesias to left foot however relieved after she took her shoe off. Patient states last night started with diarrhea and had 4-5 episodes and reports during that time had bowel incontine nce. She took Pepto-Bismol today and no further diarrhea. Denies urinary incontinence, denies saddle paresthesias. Patient reports past several days has been having chills and LUCAS's. She reports taking her temperature not noting any fever. Pt states on 12/30/18 took Z-pack and prednisone for congestion. She reports didn't have a cough however "spit" out phlegm. Denies SOB or wheezing at that time or recently. Denies any other recent illnesses. 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 Denies any noted injury and denies any falls. Denies any hx back surgery. Denies recent travel, ill contacts, known insect bites. Denies diaphoresis, N/V, melena, hematochezia, dizziness, syncope, vision changes, neck pain, CP, SOB, orthopnea, palpitations, cough, sore throat, choking, otalgia, abdominal pain, extremity edema, rashes, urinary symptoms. Admission Exam Per Admitting Provider Physical Exam: General: no acute distress, WDWN Head: normocephalic, atraumatic Eyes: PERRL, EOM's intact, conjunctiva non-injected, anicteric ENT: hard of hearing, normal inspection external ears, nose, mucous membranes dry Neck: supple, trachea midline, non-tender, ROM intact to flexion, extension and rotation Lungs: clear, no respiratory distress, no wheezing/rhonchi/rales CV: RRR, no murmur, no pretibial edema Abd: normal BS, soft, non-tender, no CVA tenderness to percussion Back: no discoloration, +tenderness to palpation lower lumbar spinous processes, limited movement of back secondary to discomfort Ext: no cyanosis or erythema, Bilateral hips with flexion and internal and external rotation intact with tenderness reproduced to lower legs. No hip tend erness to palpation, flexion and extension of bilateral knees intact with pain reproduced to knees and calves; distal pulses palpable, sensation to light touch intact and equal bilaterally Neuro: A&O x 3, no focal deficits noted, normal affect Skin: hot, dry Principal Diagnosis BACK PAIN SECONDARY TO SPINAL STENOSIS Discharge Exam General- oriented x 3, not in distress, speaks in sentences with no effort or accessory muscle use Head- atraumatic Eyes- PERRL, EOMI, anicteric ENT- oropharynx clear Neck- supple, no JVD, no adenopathy, no thyromegaly; carotids +2/2, no bruits appreciated Lungs- clear to auscultation bilaterally, no rales/wheezes Heart- normal rate, regular rhythm; no murmur, no gallop, no rub appreciated Abdomen- normal bowel sounds, nondistended, soft, nontender, no masses or hepatosplenomegaly Extremities- no pretibial edema, no calf tenderness; peripheral pulses intact Neuro- alert, oriented x 3; CN 2-12 grossly intact; motor 5/5 bilaterally;sensation 100% on all extremities; no other gross focal neurologic deficits Skin- warm & dry Discharge Data Allergies Allergy/AdvReac Type Severity Reaction Status Date / Time amoxicillin Allergy Unknown Unverified 01/11/19 12:40 bacitracin AdvReac Unknown Unverified 01/11/19 12:40 [From Triple Antibiotic] neomycin AdvReac Unknown Unverified 01/11/19 12:40 [From Triple Antibiotic] polymyxin B AdvReac Unknown Unverified 01/11/19 12:40 [From Triple Antibiotic] Consultations 01/11/19 15:05 ED Decision to Admit Stat 01/11/19 18:04 Consult Case Management - Discharge Planning Routine 01/11/19 21:15 Consult Orthopedic Surgery Routine Ordered Studies 01/11/19 13:43 CT abd pelvis wo con Stat ABDOMEN AND PELVIS CT WITHOUT CONTRAST CT DOSE: 509.44 mGy.cm HISTORY: fever, diarrhea, abd pain TECHNIQUE: Multiaxial CT images of the abdomen and pelvis were performed without contrast. A dose lowering technique was utilized adhering to the principles of ALARA. COMPARISON STUDY: None. FINDINGS: Partially visualized hypodense lesion within the anterior mediastinum and extending along the left heart border. This measures up to 7.3 cm. This favors a thymic or pericardial cyst. Groundglass densities at the lung bases. These are nonspecific and may represent dependent change or a low-grade pneumonitis. No pneumoperitoneum. No pneumatosis. Old mild superior endplate compression deformity at T11. No acute fractures identified. A 4 cm calcified uterine fibroid. The bladder is unremarkable. Nodular contour to the liver consistent with cirrhosis. The unenhanced spleen, adrenal glands, gallbladder, and pancreas are unremarkable. Mild bilateral perinephric edema. This is likely chronic. There is a punctate stone within the right kidney. No left renal calculi. No hydronephrosis. No retroperitoneal lymphadenopathy. Suboptimal evaluation for bowel pathology due to the lack of intravenous and oral contrast. However, there is no definite bowel wall thickening or obstruction. Normal appendix. A few colonic diverticula. No evidence for diverticulitis. IMPRESSION: 1. Groundglass densities at the lung bases. These are nonspecific and may represent dependent change or a low-grade pneumonitis. 2. No definite bowel wall thickening or obstruction. 3. A partially visualized 7.3 cm hypodense lesion within the anterior mediastinum extending along the left heart border. This favors a thymic or pericardial cyst. 4. Right-sided nephrolithiasis. No hydronephrosis. 5. Normal appendix. 6. Cirrhotic liver. 01/11/19 16:57 MR lumbar spine wo/w con Stat [place], [place] [phone] Magnetic Resonance Report Patient: FREDI CRAIGAdmit Date: 01/11/19 MR#: [id number]: 350 [facility] Acct ID:[id number]: [facility] Zip[facility] [place] [address] Age: 78Location: 2W Sex: F Room/Bed: [facility] Att Phy: Lasha Antoine, MDDiagnosis: LEG WEAKNESS Liliane Phy: Gigi Nassar MDService Date: 01/11/19 Fam Phy: Interpreting Phy: Lokesh Dumont Admit Phy: Lillie Lewis DO Ordering Phy: Bridgette Duran PA-C cc: ~ MR lumbar spine wo/w con CLINICAL HISTORY: 78 years-old Female with back pain, fever. Acute low back pain with fever COMPARISON: CT abdomen and pelvis of same day TECHNIQUE: Multiplanar, multi sequence MRI of the lumbar spine was performed both with and without the use of 6.5 mL Gadavist FINDINGS: Mildly distended urinary bladder lumen. No acute abnormalities identified on the large [id number] painter structural steel localizer images. Heterogeneous appearance of the uterine fundus suggestive of uterine fibroids. No acute fracture or subluxation. L4 vertebral body hemangioma extends into the right pedicle measuring up to 1.3 cm. Mild soft tissue edema with synovial cysts noted at L3-L4, L4-L5 and L5-S1. Additionally, there is mild bone marrow edema about the right L3-L4 facets. There is mild enhancement about the right L3-L4 facet effusion. Nonspecific enhancement about the L1-L2 interspinous tissues No evidence of acute discitis/osteomyelitis or acute fracture. Remote superior endplate compression of approximately 20% involves the T11 vertebral body. 5 mm anterolisthesis L4 on L5 is likely secondary to long-standing facet arthrosis. Conus medullaris terminates at T12. Signal within the imaged thoracic spinal cord and cauda equina appears to be within normal limits. T12-L1: Mild intervertebral disc space narrowing with moderate facet arthrosis. No central canal or foraminal narrowing. L1-L2: Mild spondylitic spurring with moderate facet arthrosis and ligamentum flavum thickening with trace facet effusions. Central canal and neuroforamina appear generally patent. L2-L3: Mild disc space narrowing with spondylitic spurring, small posterior annular disc bulge with severe facet arthrosis, ligamentum flavum thickening and trace facet effusions. Flattening of the ventral thecal sac without concentric canal stenosis. Mild bilateral foraminal narrowing. L3-L4: Mild disc space narrowing with anterolisthesis as above. Spondylitic spurring with circumferential annular disc bulge, ligament of the thickening, severe facet arthrosis with trace facet effusions. AP dimension of the thecal sac measures 7 mm. Moderate central canal with mild bilateral foraminal narrowing. L4-L5: Mild disc space narrowing with circumferential annular disc bulge, mild spondylitic spurring, severe facet arthrosis with ligamentum flavum thickening. Small left and trace right facet effusions. Small right paracentral disc protrusion. Moderate to severe central canal stenosis with moderate right lateral recess, mild to moderate right and moderate left foraminal narrowing. L5-S1: Mild spondylitic spurring with severe facet arthrosis. No central canal or foraminal narrowing. IMPRESSION: 1. No acute fracture, subluxation or evidence of acute discitis/osteomyelitis. 2. Mild soft tissue and bone marrow edema about the right L3-L4 facet with trace effusion demonstrating peripheral enhancement, likely on a degenerative/reactive basis. Acute septic facet arthrosis considered less likely. 3. Multilevel discogenic degenerative changes and facet arthrosis as above. 4. Moderate L3-L4 with moderate to severe L4-L5 central canal stenosis. 5. Multilevel foraminal narrowing, moderate on the left at L4-L5. Hospital Course (1) Spinal stenosis: (2) Fever: (3) Back pain: (4) Bilateral leg pain: Patient presented with onset low back pain 3 days ago with bilateral leg pain and BLE weakness. Difficulty ambulating. C/O chills x couple of days. Reports 4 episodes of diarrhea last night with stool incontinence. Denies urinary incontinence, saddle paresthesias In ER patient febrile at 38C, P: 88, R: 18, BP: 126/68, 97% on RA. WBC: 14, lactate: 1.0 Meet SIRS criteria MRI lumbar spine: IMPRESSION: 1. No acute fracture, subluxation or evidence of acute discitis/osteomyelitis. 2. Mild soft tissue and bone marrow edema about the right L3-L4 facet with trace effusion demonstrating peripheral enhancement, likely on a degenerative/reactive basis. Acute septic facet arthrosis considered less likely. 3. Multilevel discogenic degenerative changes and facet arthrosis as above. 4. Moderate L3-L4 with moderate to severe L4-L5 central canal stenosis. 5. Multilevel foraminal narrowing, moderate on the left at L4-L5. evaluated by Ortho Spine- Dr. Mcdermott recommend conservative management for now, but may eventually need epidural injection by Pain Management Service or ultimately, Surgery symptoms resolved, afebrile on discharge day patient and family requesting discharge advised PRN Tylenol, Ibuprofen (1-2x /day) no heavy exertion ff up with PCP this week (5) Diarrhea: Reported 4 episodes of diarrhea overnight. Took Pepto-Bismol this morning and no further diarrhea. Denies abdominal pain. CT abdomen and pelvis without noted bowel abnormality C diff stool : negative diarrhea resolved (6) Hyperglycemia: Glucose: 198. Patient recently finished prednisone taper for congestion -A1c : pending (7) Mediastinal mass: CT abdomen/pelvis: A partially visualized 7.3 cm hypodense lesion within the anterior mediastinum extending along the left heart border. This favors a thymic or pericardial cyst. -Further outpatient work-up (8) Abnormal CT of the abdomen: CT abdomen: Nodular contour to the liver consistent with cirrhosis. Follow up as outpatient (9) Asthma: No shortness of breath, wheezing -Continue albuterol as needed (10) Dyslipidemia: on Statin discussed case with patient and family re: plan of care recommended at least 1 more night of observation they requested to be discharged today all questions answered, they are understanding, agreeable and comfortable with the plan of care discharge to home ff up with PCP this week ff up with Dr. Mcdermott- Ortho Spine this week Total Time Total Time Spent Total Time Spent (In Minutes): 40 MINUTES Discharge Plan Discharge Items Patient Disposition: Home - Self-Care Reason For Visit: LEG WEAKNESS Discharge Diagnosis: BACK PAIN SECONDARY TO SPINAL STENOSIS Discharge Goals: Decrease discomfort, Diagnostic testing and Therapeutic intervention Activity: As commented below Activity Comment: NO HEAVY EXERTION Lifting: Wait until after follow-up appointment Exercise/Sports: Wait until after follow-up appointment Driving/Machine Use Comment: NO DRIVING Non-emergency contact: Primary Care Provider Call non-emergency contact if: you have any medication questions, your symptoms worsen, your pain is not controlled, your pain is worsening and you have a fever Follow-up/Referrals: Eleno Mcdermott DO [Surgeon] - Gigi Nassar MD [Primary Care Provider] - Diet: Heart Healthy Addtl Provider Instructions: DRINK PLENTY OF FLUIDS. FOLLOW UP WITH DR. NASSAR THIS COMING WEEK. FOLLOW UP WITH DR. MCDERMOTT- ORTHOPEDIC SURGEON/ CLEANING MAID IN [address] NASSAR OR RETURN TO THE ER IMMEDIATELY IF WITH WORSENING OF SYMPTOMS, INCREASING PAIN, WEAKNESS/NUMBNESS OF LEGS, FEVER/CHILLS, COUGH, SHORTNESS OF BREATH, ABDOMINAL PAIN, DIARRHEA. Prescriptions: Continued simvastatin 20 mg tablet 20 mg PO Q2D RF: 0 albuterol sulfate 90 mcg/actuation Hfa Aerosol Inhaler 2 puff INHALATION QID PRN (Reason: Shortness Of Breath Or Wheezing) RF: 0 Discontinued prednisone 10 mg tablet 10 mg PO DIRECTED RF: 0 azithromycin 250 mg tablet 250 mg PO DIRECTED RF: 0 Stand-Alone Forms: [facility] Discharge Orders: Discharge Order (Routine); Ordered 01/12/19 Ordered By: Lasha Antoine Admission Data Admit Date/Time: 01/11/19 16:09 Attending Provider: Lasha Antoine Admit Provider: Lillie Lewis Primary Care Provider: Gigi Nassar Other Providers: Eleno Mcdermott Sabrina M. Service: Medical Other Interventions: Discharge Summary Assessment (RN) Last Done: 01/12/19 12:36 DC Date/Time DO NOT enter until pt leaves facility: 01/12/19 13:06
[2019-01-13 06:19] LABS: Estimated Average Glucose 137 mg/dl; Hemoglobin A1C 6.4 % (4.5-5.6)
== END 2019-01-12 13:06 | disposition home or self-care (01) | DRG 552 ==
LOC: ED 11:33 → 2W 16:09

== ENCOUNTER 2023-11-07 08:00 | Inpatient (IN) ==
--- NOTE | 2023-11-07 08:46 | Emergency Department Note ---
Impression & Plan Acute CVA (cerebrovascular accident) ED Provider Note Provider: Armando Almaguer MD DATE OF SERVICE: 11/07/2023 CHIEF COMPLAINT: Unsteady when walking, some vision issues HISTORY OF PRESENT ILLNESS: Patient is a 83-year-old female history of hyperlipidemia presenting with granddaughter today for evaluation over the last approximately 3 days of some dizziness particular with ambulation as well as her vision being a bit off or doubled. No headache or pain reported. No syncope or falls. Has been unsteady and granddaughter states that Sunday evening around dinnertime seem to have a period where she might of stared off briefly and then almost collapsed but she was there to catch her. No other falls or syncope reported. Patient significant difficulty ambulating. Granddaughter is noted that maybe her speech is a little bit slurred or off and that her eyes do not seem to track normally. No history of stroke. No use of aspirin or blood thinners. Denies any numbness or tingling extremities. Denies nausea, abdominal pain, vomiting, chest pain, or shortness of breath. Granddaughter states they had to talk with her quite some time to get her to come in. PAST MEDICAL HISTORY: As noted above MEDICATIONS: Reviewed SOCIAL HISTORY: , chawla, non-smoker PHYSICAL EXAM: GENERAL: alert and oriented in no acute distress on stretcher Head: normocephalic and atraumatic EYES: No injection, discharge or icterus. PERRL, EOMI with inability of the left eye to cross the midline and some nystagmus looking towards the right with the right eye. NECK: Trachea midline. Supple. ENT: Mucous membranes pink and moist. Pharynx without erythema or exudate. LUNGS: Airway patent. No retractions. Breath sounds clear with good air entry bilaterally. HEART: Regular rate and rhythm. No chest wall tenderness ABDOMEN: Soft and non-tender, without guarding or rebound. SKIN: Acyanotic, warm, dry, without rashes EXTREMITIES: Without swelling, tenderness or deformity NEUROLOGICAL: No aphasia. No significant facial droop. No numbness or tingling and no change in the extremities. No pronator drift. A bit of dysmetria with [id number] of the right hand/[id number]. Able to stand but requires assistance is unsteady when taking a step or 2. EK bpm sinus bradycardia. No PVC or PAC. No acute ST segment elevation or depression with a QTc of 399. CONTINUOUS CARDIAC MONITORING: was ordered and showed a heart rate of 50s bpm in sinus bradycardia Patient's laboratory studies and imaging reviewed. Differential includes Infection, dehydration, metabolic abnormality, hypo/hyperglycemia, electrolyte disturbance, anemia, hypoxia, cardiac sources, intracerebral event, toxicologic, neurologic, as well as other pathologies. IMPRESSION/MEDICAL DECISION MAKING: Patient with some subtle neurosymptoms likely related to a central process or CVA. Has some extraocular motion abnormalities as well as some dysmetria. Question stroke but several days and outside the time window. No trauma reported. Denies other infectious symptoms. Will complete blood work as well as imaging of the head and neck with CT and CT angiograms. Will exclude intracranial bleed. Low threshold to initiate aspirin once this returns. No significant cardiac, pulmonary, or GI symptoms otherwise reported. Patient herself is stoic and really wishes to go home but discussed with her significant concerns for CVA. Basic blood work obtained here today without significant anemia or electrolyte abnormality. No signs of kidney dysfunction or acute hepatitis or troponin elevation. CT imaging completed of the head and neck. Radiology report without evidence of intracranial hemorrhage or mass affect but findings indicative of both acute to subacute as well as chronic infarcts. CT angiograms report no significant acute vascular abnormalities noted. Given full dose aspirin. Discussed with patient as well as granddaughter at bedside recommend we bring her to the hospital for further evaluation, rehab, and secondary prevention. She was begrudgingly agreeable. Hospitalist team contacted. DIAGNOSIS: CVA DISPOSITION: Hospitalist will evaluate Patient was agreeable with this plan. 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 Hyperglycemia Back pain Fever History of cataract surgery (Chronic) Hx of tonsillectomy (Chronic) Asthma (Chronic) Dyslipidemia (Chronic) Febrile illness (Acute) Diarrhea (Acute) Weakness (Acute) Bilateral leg pain (Acute) Medical History (Updated 11/07/23 @ 15:05 by Armando Almaguer M.D.) Hyperlipidemia Family History (Updated 01/11/19 @ 16:44 by Bridgette Duran PA-C) Grandmother (Maternal) Stroke Father Lung cancer Mother Liver cancer Other Diabetes Social History (Updated 01/11/19 @ 16:43 by Bridgette Duran PA-C) Smoking Status: Never smoker Hx Alcohol Use: No Hx Substance Use: No Preferred Language: Guinean Communication Ability: Effective Pill Coater Required: No Beliefs That Will Affect Care: None marital status: Current Living Situation: Spouse and Family Feels Safe at Home: Yes Assistive Devices: Walker Allergies Allergies Allergy/AdvReac Type Severity Reaction Status Date / Time amoxicillin Allergy Unknown Unverified 11/07/23 11:04 bacitracin AdvReac Unknown Unverified 11/07/23 11:04 [From Triple Antibiotic] neomycin AdvReac Unknown Unverified 11/07/23 11:04 [From Triple Antibiotic] polymyxin B AdvReac Unknown Unverified 11/07/23 11:04 [From Triple Antibiotic] Home Meds Home Medications Medication Instructions Recorded Confirmed albuterol sulfate 90 mcg/actuation 2 puff inhalation QID PRN 01/11/19 11/07/23 aerosol inhaler Shortness Of Breath Or Wheezing simvastatin 20 mg tablet 20 mg PO Q2D 01/11/19 11/07/23 Results & Data (ED) Vital Signs Vital Signs - 24 hr 11/07/23 08:03 11/07/23 08:25 11/07/23 08:30 Temperature 36.0 C L Temperature Source Temporal Artery Scan Pulse Rate 55 L Pulse Rate [Right] 59 L Pulse Rhythm Regular Pulse Rhythm [Right] Pulse Strength Normal Respiratory Rate 18 20 Respiratory Effort / Characteristics Non-Labored Spontaneous Respiratory Depth Normal Respiratory Pattern Regular Blood Pressure 159/70 H Blood Pressure [Right Arm] 167/72 H Blood Pressure Mean 99 Blood Pressure Mean [Right Arm] 103 Blood Pressure Position Sitting Pulse Oximetry 97 95 97 Oxygen Delivery Method Room Air Room Air Room Air Oxygen Flow Rate 0 Sepsis Recent Fever Within 48 Hours No Sepsis New/Unexplained Change in Mental Status No Sepsis Action Taken by Nursing No Action Required 11/07/23 08:41 11/07/23 09:59 Temperature Temperature Source Pulse Rate 52 L Pulse Rate [Right] 58 L Pulse Rhythm Pulse Rhythm [Right] Regular Pulse Strength Respiratory Rate 20 Respiratory Effort / Characteristics Respiratory Depth Normal Respiratory Pattern Blood Pressure Blood Pressure [Right Arm] 140/88 Blood Pressure Mean Blood Pressure Mean [Right Arm] 105 Blood Pressure Position Pulse Oximetry 97 Oxygen Delivery Method Room Air Oxygen Flow Rate Sepsis Recent Fever Within 48 Hours Sepsis New/Unexplained Change in Mental Status Sepsis Action Taken by Nursing Laboratory Data 11/07/23 08:22 11/07/23 08:22 Lab Results 11/07/23 Range/Units 08:22 WBC 6.59 (4.8-10.8) K/ul RBC 4.24 (4.20-5.40) M/uL Hgb 12.7 (12.0-16.0) g/dl Hct 38.6 (37.0-47.0) % MCV 91.0 (80.0-100.0) fL MCH 30.0 (25.0-34.0) pg MCHC 32.9 (32.0-36.0) g/dL RDW Std Deviation 43.3 (36.4-46.3) fL RDW Coeff of Joi 13.0 (11.5-14.5) % Plt Count 170 (130-400) K/uL MPV 11.4 (9.4-12.4) fL Immature Gran % (Auto) 0.2 % Neut % (Auto) 52.9 % Lymph % (Auto) 31.9 % [place] % (Auto) 10.2 % Eos % (Auto) 4.2 % Baso % (Auto) 0.6 % Neut # (Auto) 3.49 (1.40-6.50) K/uL Lymph # (Auto) 2.10 (1.20-3.40) K/uL [place] # (Auto) 0.67 H (0.11-0.59) K/uL Eos # (Auto) 0.28 (0.00-0.50) K/uL Baso # (Auto) 0.04 (0.00-0.20) K/uL Immature Gran # (Auto) 0.01 (0.01-0.20) K/uL PT 11.0 (9.0-12.0) Seconds INR 1.0 (0.9-1.1) APTT 26 (21-31) Seconds PTT Ratio 1.0 Sodium 138 (136-145) mmol/L Potassium 4.1 (3.5-5.1) mmol/L Chloride 106 (98-107) mmol/L Carbon Dioxide 27 (21-32) mmol/L Anion Gap 5 (3-11) BUN 14 (6-23) mg/dl Creatinine 0.74 (0.6-1.2) mg/dl Est Cr Clr Drug Dosing 48.0 ml/min Est GFR ( Amer) 85.6 ml/min Est GFR (Non-Af Amer) 73.9 ml/min BUN/Creatinine Ratio 18.9 (10-20) Glucose 124 H (70-99(Fasting)) mg/dl Calcium 9.4 (8.6-10.3) mg/dl Magnesium 2.0 (1.7-2.4) mg/dl Total Bilirubin 0.8 (0.2-1.0) mg/dl AST 20 (13-39) U/L ALT 13 (7-52) U/L Alkaline Phosphatase 109 H (34-104) U/L Troponin I High Sens 5.1 (0-14) pg/ml Total Protein 6.9 (6.0-8.3) gm/dl Albumin 4.1 (3.4-5.0) gm/dl Globulin 2.8 (2.5-4.0) gm/dl Albumin/Globulin Ratio 1.5 (0.9-2) Administered Medications Discontinued Medications Aspirin (Aspirin 81 Mg Chew) 324 mg PO NOW STA Stop: 11/07/23 10:11 Last Admin: 11/07/23 10:31 Dose: 324 mg Documented By: AM Ioversol (Optiray 320 125ml) 120 ml IV ONCE ONE Stop: 11/07/23 09:42 Last Admin: 11/07/23 09:41 Dose: 120 ml Documented By: KYF Imaging Data Radiologist's Impression: Head CT 11/07/23 08:39 CT OF THE HEAD WITHOUT CONTRAST CLINICAL HISTORY: stroke suspected, dizzy/EOMI abnormal COMPARISON STUDY: No previous studies for comparison. TECHNIQUE: Helical axial images of the head were obtained without IV contrast. Automated exposure control was utilized for the study. A dose lowering technique was utilized adhering to the principles of ALARA. FINDINGS: No acute intracranial hemorrhage, midline shift or mass effect is present. Ventricular system is unremarkable. Basal cisterns are patent. There are no extra-axial collections. White matter hypodensity suggests small vessel disease. 1.6 cm hypodense focus within the anterior limb of the right internal capsule and right caudate head favors an old infarct. A 1.3 cm hypodense focus within the left adrianne is noted on image 9 of 28. There are no significant calvarial abnormalities. IMPRESSION: 1. No acute intracranial hemorrhage or mass effect. 2. 1.3 cm hypodense focus within the left adrianne. This favors an acute to subacute infarct. MRI of the brain could be obtained for further evaluation. 3. 1.6 cm hypodense focus within the anterior limb of the right internal capsule and right caudate head. This favors an old infarct. ACT 112: Negative or not required by law. Electronically signed by: Sonny Pritchett M.D. 11/07/2023 10:01 AM Head CTA 11/07/23 08:39 CTA ANGIOGRAPHY OF THE HEAD CLINICAL HISTORY: neuro deficit, acute stroke suspected COMPARISON STUDY: No previous studies for comparison. TECHNIQUE: Helical axial images of the head were obtained following uneventful intravenous administration of 120 cc of Optiray. Sagittal and coronal reconstructions were viewed as well as maximal intensity projections on an independent 3-D workstation. Automated exposure control was utilized for the study. A dose lowering technique was utilized adhering to the principles of ALARA. FINDINGS: No acute intracranial hemorrhage is identified on the head CT which will be reported separately. A hypodense focus within the right caudate head and anterior limb of the right internal capsule favors an old infarct. A 1.3 cm hypodense focus within the left aspect of the adrianne is noted. There is moderate calcified plaque within the cavernous carotids without significant stenosis. No occlusion within the anterior circulation is identified. There is no intracranial aneurysm. The right vertebral artery ends in PICA. There is severe stenosis of the distal left vertebral artery. The proximal basilar artery is diminutive with occlusion of the mid basilar artery with distal reconstitution, likely through bilateral posterior communicating arteries which largely supplied the bilateral posterior cerebral arteries. Superior cerebellar arteries are patent. The posterior inferior cerebellar arteries are patent. The anterior inferior cerebellar arteries appear diminutive. Major dural sinuses are patent. IMPRESSION: 1. Severe stenosis of the distal left vertebral and proximal basilar artery with age indeterminate, although probably chronic, occlusion of the basilar artery with distal reconstitution through bilateral posterior communicating arteries which largely supply the bilateral posterior cerebral arteries. Diminutive basilar artery branches. 2. No vessel occlusion within the anterior circulation. No intracranial aneurysm. 3. 1.3 cm left pontine hypodense focus suggestive of an acute to subacute infarct. Hypodense focus within the right caudate head and anterior limb of the right internal capsule is age indeterminate but favors an old infarct. ACT 112: Negative or not required by law. Electronically signed by: Sonny Pritchett M.D. 11/07/2023 10:10 AM Neck CTA 11/07/23 08:39 CT angio neck with con CLINICAL HISTORY: neuro deficit, acute stroke suspected TECHNIQUE: CT angiography of the neck was performed following intravenous administration of iodinated contrast. Coronal and sagittal MIPS were obtained from the axial data set and were submitted for review. Automated dose lowering techniques and/or adjustment according to patient size were utilized for this examination. All measurements were calculated based on NASCET criteria. CT DOSE: 1021.92 mGy.cm Comparison: None available at the time of this dictation. FINDINGS: Small thyroid nodules are seen which do not require follow-up by ACR criteria. CTA Neck: A 3 vessel aortic arch is shown. There is no significant atherosclerotic plaque in the aortic arch or the origins of the innominate, left common carotid, and left subclavian arteries. The common carotid, external carotid, cervical segments of the internal carotid arteries, and the cervical segments of the vertebral arteries are patent without hemodynamically significant stenosis. The left vertebral artery is dominant. Right vertebral artery terminates as PICA. Multifocal narrowing of the basilar artery is seen, likely chronic. 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 Assessment of stenosis of the internal carotid arteries is based on NASCET criteria. ACT 112: Negative or not required by law. Electronically signed by: Scot Ayala M.D. 11/07/2023 10:08 AM Discharge Plan Visit Data Chief Complaint: Dizziness Stated Complaint: trouble walking, lightheaded, double vision ED Provider: Armando Almaguer Discharge Problem: Acute CVA (cerebrovascular accident) Patient Disposition: Admitted As Inpatient Discharge Instructions Interventions: ED Discharge Assessment Last Done: 11/07/23 12:43
[2023-11-07 08:59] LABS: Basophils # (auto) 0.04 K/uL (0.00-0.20); Basophils % (auto) 0.6 %; Eosinophils # (auto) 0.28 K/uL (0.00-0.50); Eosinophils % (auto) 4.2 %; Hematocrit (blood only) 38.6 % (37.0-47.0); Hemoglobin 12.7 g/dl (12.0-16.0); Immature Granulocytes # (auto) 0.01 K/uL (0.01-0.20); Immature Granulocytes % (auto) 0.2 %; Lymphocytes % (auto) 31.9 %; Mean Corpuscular Hgb Conc 32.9 g/dL (32.0-36.0); Mean Platelet Volume 11.4 fL (9.4-12.4); Monocytes # (auto) 0.67 K/uL (0.11-0.59); Monocytes % (auto) 10.2 %; Neutrophils # (auto) 3.49 K/uL (1.40-6.50); Neutrophils % (auto) 52.9 %; Platelet Count 170 K/uL (130-400); RDW Standard Deviation 43.3 fL (36.4-46.3); Red Blood Count 4.24 M/uL (4.20-5.40); White Blood Count 6.59 K/ul (4.8-10.8)
[2023-11-07 09:11] LABS: Albumin Globulin Ratio 1.5 (0.9-2); Albumin Level 4.1 gm/dl (3.4-5.0); BUN Creatinine Ratio 18.9 (10-20); Bilirubin,Total 0.8 mg/dl (0.2-1.0); Calcium 9.4 mg/dl (8.6-10.3); Est GFR (African American) 85.6 ml/min; Est GFR (Non-African American) 73.9 ml/min; Globulin 2.8 gm/dl (2.5-4.0); Potassium 4.1 mmol/L (3.5-5.1); Total Protein 6.9 gm/dl (6.0-8.3)
[2023-11-07 09:18] LABS: Troponin I High Sensitivity 5.1 pg/ml (0-14)
[2023-11-07 09:23] LABS: Partial Thromboplastin Time 26 Seconds (21-31)
[2023-11-07] MEDS: OPTIRAY 320 125ml IV ONE (09:41)
--- NOTE | 2023-11-07 10:03 | CT Scan Report ---
CT OF THE HEAD WITHOUT CONTRAST CLINICAL HISTORY: stroke suspected, dizzy/EOMI abnormal COMPARISON STUDY: No previous studies for comparison. TECHNIQUE: Helical axial images of the head were obtained without IV contrast. Automated exposure con trol was utilized for the study. A dose lowering technique was utilized adhering to the principles o f ALARA. FINDINGS: No acute intracranial hemorrhage, midline shift or mass effect is present. Ventricular syst em is unremarkable. Basal cisterns are patent. There are no extra-axial collections. White matter hyp odensity suggests small vessel disease. 1.6 cm hypodense focus within the anterior limb of the right internal capsule and right caudate head favors an old infarct. A 1.3 cm hypodense focus within the le ft adrianne is noted on image 9 of 28. There are no significant calvarial abnormalities. IMPRESSION: 1. No acute intracranial hemorrhage or mass effect. 2. 1.3 cm hypodense focus within the left adrianne. This favors an acute to subacute infarct. MRI of the brain could be obtained for further evaluation. 3. 1.6 cm hypodense focus within the anterior limb of the right internal capsule and right caudate he ad. This favors an old infarct. ACT 112: Negative or not required by law. Electronically signed by: Sonny Pritchett M.D. 11/07/2023 10:01 AM
--- NOTE | 2023-11-07 10:10 | CT Scan Report ---
CT angio neck with con CLINICAL HISTORY: neuro deficit, acute stroke suspected TECHNIQUE: CT angiography of the neck was performed following intravenous administration of iodinate d contrast. Coronal and sagittal MIPS were obtained from the axial data set and were submitted for re view. Automated dose lowering techniques and/or adjustment according to patient size were utilized f or this examination. All measurements were calculated based on NASCET criteria. CT DOSE: 1021.92 mGy.cm Comparison: None available at the time of this dictation. FINDINGS: Small thyroid nodules are seen which do not require follow-up by ACR criteria. CTA Neck: A 3 vessel aortic arch is shown. There is no significant atherosclerotic plaque in the aor tic arch or the origins of the innominate, left common carotid, and left subclavian arteries. The co mmon carotid, external carotid, cervical segments of the internal carotid arteries, and the cervical segments of the vertebral arteries are patent without hemodynamically significant stenosis. The left vertebral artery is dominant. Right vertebral artery terminates as PICA. Multifocal narrowing of the basilar artery is seen, likely chronic. 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 Assessment of stenosis of the internal carotid arteries is based on NASCET criteria. ACT 112: Negative or not required by law. Electronically signed by: Scot Ayala M.D. 11/07/2023 10:08 AM
--- NOTE | 2023-11-07 10:12 | CT Scan Report ---
CTA ANGIOGRAPHY OF THE HEAD CLINICAL HISTORY: neuro deficit, acute stroke suspected COMPARISON STUDY: No previous studies for comparison. TECHNIQUE: Helical axial images of the head were obtained following uneventful intravenous administr ation of 120 cc of Optiray. Sagittal and coronal reconstructions were viewed as well as maximal inten sity projections on an independent 3-D workstation. Automated exposure control was utilized for the study. A dose lowering technique was utilized adhering to the principles of ALARA. FINDINGS: No acute intracranial hemorrhage is identified on the head CT which will be reported separa tely. A hypodense focus within the right caudate head and anterior limb of the right internal capsule favors an old infarct. A 1.3 cm hypodense focus within the left aspect of the adrianne is noted. There i s moderate calcified plaque within the cavernous carotids without significant stenosis. No occlusion within the anterior circulation is identified. There is no intracranial aneurysm. The right vertebral artery ends in PICA. There is severe stenosis of the distal left vertebral artery. The proximal basi lar artery is diminutive with occlusion of the mid basilar artery with distal reconstitution, likely through bilateral posterior communicating arteries which largely supplied the bilateral posterior cer ebral arteries. Superior cerebellar arteries are patent. The posterior inferior cerebellar arteries a re patent. The anterior inferior cerebellar arteries appear diminutive. Major dural sinuses are paten t. IMPRESSION: 1. Severe stenosis of the distal left vertebral and proximal basilar artery with age indeterminate, a lthough probably chronic, occlusion of the basilar artery with distal reconstitution through bilatera l posterior communicating arteries which largely supply the bilateral posterior cerebral arteries. Di minutive basilar artery branches. 2. No vessel occlusion within the anterior circulation. No intracranial aneurysm. 3. 1.3 cm left pontine hypodense focus suggestive of an acute to subacute infarct. Hypodense focus wi thin the right caudate head and anterior limb of the right internal capsule is age indeterminate but favors an old infarct. ACT 112: Negative or not required by law. Electronically signed by: Sonny Pritchett M.D. 11/07/2023 10:10 AM
[2023-11-07] MEDS: ASPIRIN 81 MG CHEW PO STA (10:31)
[2023-11-07] MEDS ORDERED: PHARMACIST DISCHARGE MED REC CONSULT PRN (11:12)
--- NOTE | 2023-11-07 11:23 | History & Physical Report ---
Date of Service November 07, 2023 Assessment & Plan (1) Acute CVA (cerebrovascular accident): Plan: Patient is an 83-year-old female with history of asthma, dyslipidemia, lumbar spine stenosis Presenting with dizziness, blurring of vision, loss of balance x 3 days. Acute cerebrovascular accident, Left pontine infarct Chronic infarcts, right internal capsule, right caudate head In the setting of severe left vertebral and basilar artery stenosis Symptoms started 3 days ago Also noted to have an episode of staring last Sunday Brain MRI: Pending EEG: Pending Echocardiogram: Pending Monitor in telemetry unit to rule out underlying A-fib Check lipid panel and A1c Start aspirin 81 mg p.o. daily Increase usual Lipitor from 20 to 40 mg daily Neurology and vascular surgery consults Permissive hypertension Gentle IV fluids PT and OT evaluation Left lateral chest wall pain Patient describes as indigestion, mostly occurring after meal Troponin x 1 negative , EKG no signs of acute infarct/ischemia Trend troponins, echocardiogram Trial of Protonix daily Asthma Not in exacerbation Continue usual inhaler Dyslipidemia Check lipid panel Check A1c Increase usual Lipitor 20 to 40 mg daily History of lumbar spine stenosis Denies back pain DVT prophylaxis Heparin SQ every 12 CODE STATUS Disposition Lives at home PT and OT evaluation ordered History of Present Illness Chief Complaint: Dizziness, blurring of vision, loss of balance x 3 days Primary Care Provider: Gigi Sarmiento MD Patient is an 83-year-old female with history of asthma, dyslipidemia, lumbar spine stenosis Presenting with dizziness, blurring of vision, loss of balance x 3 days. Patient is a relatively active 83 old female at her usual state of health until last Sunday when patient was noted by granddaughter to be losing her balance while walking. She was then noticed to be staring blankly for about 1 minute before responding to her granddaughter. No seizure-like activity noted. Yesterday, patient's loss of balance persisted, but was also associated with some diplopia, and slurred speech. Above symptoms persisted prompting consult at the ER. At the ER, patient presented with relatively stable vital signs. CT head showing left pontine acute infarct and right internal capsule and caudate head Chronic Infarcts. 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 Since symptom started 3 days ago, stroke alert was not called and thrombolytics not administered Patient Admitted for Further Evaluation and Management. On exam, patient was seen resting in bed comfortable, not in distress She reports having some right-sided weakness but no other focal neurologic deficits. She reports having some "indigestion", sharp pain on the left side which has since resolved. Patient reports having similar type of discomfort intermittently at home, mostly after eating. Allergies Allergy/AdvReac Type Severity Reaction Status Date / Time amoxicillin Allergy Unknown Unverified 11/07/23 11:04 bacitracin AdvReac Unknown Unverified 11/07/23 11:04 [From Triple Antibiotic] neomycin AdvReac Unknown Unverified 11/07/23 11:04 [From Triple Antibiotic] polymyxin B AdvReac Unknown Unverified 11/07/23 11:04 [From Triple Antibiotic] Home Medications Medication Instructions Recorded Confirmed Type albuterol sulfate 90 mcg/actuation 2 puff inhalation QID PRN 01/11/19 11/07/23 History aerosol inhaler Shortness Of Breath Or Wheezing simvastatin 20 mg tablet 20 mg PO Q2D 01/11/19 11/07/23 History Past Med/Surg History Problem List (Updated 11/07/23 @ 11:18 by Lasha Antoine MD) Acute CVA (cerebrovascular accident) Spinal stenosis Abnormal CT of the abdomen Spinal stenosis, 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 Hyperglycemia Back pain Fever History of cataract surgery (Chronic) Hx of tonsillectomy (Chronic) Asthma (Chronic) Dyslipidemia (Chronic) Febrile illness (Acute) Diarrhea (Acute) Weakness (Acute) Bilateral leg pain (Acute) Medical History (Updated 11/07/23 @ 11:18 by Lasha Antoine MD) Hyperlipidemia Family History (Updated 01/11/19 @ 16:44 by Bridgette Duran PA-C) Grandmother (Maternal) Stroke Father Lung cancer Mother Liver cancer Other Diabetes Social History (Updated 01/11/19 @ 16:43 by Bridgette Duran PA-C) Smoking Status: Never smoker Hx Alcohol Use: No Hx Substance Use: No Preferred Language: Greek Communication Ability: Effective 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 Beliefs That Will Affect Care: None marital status: Current Living Situation: Spouse and Family Feels Safe at Home: Yes Assistive Devices: Walker Review of Systems Review of Systems: all noted and negative except for above Results & Data Results & Data Vital Signs (Past 12 Hours) Vital Signs Temp Pulse Pulse Resp BP BP Pulse Ox 11/07/23 09:59 58 L 20 140/88 97 11/07/23 08:41 52 L 11/07/23 08:30 59 L 20 167/72 H 97 11/07/23 08:25 95 11/07/23 08:03 36.0 C L 55 L 18 159/70 H 97 O2 Del Method O2 Flow Rate 11/07/23 09:59 Room Air 11/07/23 08:41 11/07/23 08:30 Room Air 11/07/23 08:25 Room Air 0 11/07/23 08:03 Room Air Code Status & VTE Plan VTE Prophylaxis Plan VTE Prophylaxis will be ordered: Yes
--- NOTE | 2023-11-07 11:38 | Electrocardiogram Report ---
Test Reason : Blood Pressure : / mmHG Vent. Rate : 059 BPM Atrial Rate : 059 BPM P-R Int : 168 ms QRS Dur : 084 ms QT Int : 404 ms P-R-T Axes : 074 022 036 degrees QTc Int : 399 ms Sinus bradycardia Normal ECG No previous ECGs available Confirmed by Fletcher Benavidez ([id number]) on 11/07/2023 11:37:42 AM Referred By: REFERRED SELF Confirmed By:Fletcher Benavidez
--- NOTE | 2023-11-07 13:02 | Magnetic Resonance Report ---
MRI OF THE BRAIN WITHOUT CONTRAST CLINICAL HISTORY: Acute cerebrovascular accident. COMPARISON STUDY: Head CT and CTA of the head performed earlier today. TECHNIQUE: Utilizing a 1.5 Sondra magnet and dedicated coil, multiplanar, multiecho imaging of the bra in was performed without IV contrast. FINDINGS: A 1.8 x 0.9 cm focus restricted diffusion within the left superior aspect of the adrianne corre sponds to the finding on head CT performed earlier today. This is hypointense on the ADC map. Associa clinton T2 hyperintensity is present. There is no evidence for hemorrhage. No mass effect is present. No additional acute infarcts are present. Ventricular system is normal. Basal cisterns are patent. There are no extra-axial collections. Old infarct within the anterior limb of the right basal ganglia and right caudate head is noted. White matter T2 hyperintense foci suggest small vessel disease. No intra cranial masses are identified on this unenhanced examination. Calvarial signal is normal. IMPRESSION: 1.9 x 0.9 cm acute infarct within the left superior aspect of the adrianne. No associated he morrhage. No evidence for mass effect. No additional acute infarcts. ACT 112: Negative or not required by law. Electronically signed by: Sonny Pritchett M.D. 11/07/2023 1:00 PM
[2023-11-07] MEDS ORDERED: ACETAMINOPHEN 325 MG TAB PO PRN (16:22)
[2023-11-07] MEDS: SODIUM CHLORIDE 0.9% 1,000 ML IV SCH (16:49)
[2023-11-07] MEDS: PANTOprazole 40 MG TAB PO SCH (18:25)
[2023-11-07] MEDS: ATORVASTATIN 40 MG TAB PO SCH (18:25)
--- NOTE | 2023-11-07 18:48 | Neurology Consultation ---
Date of Consultation November 07, 2023 Assessment & Plan (1) Basilar artery stenosis with infarction: Recommend continued stroke work up to include the following: Echocardiogram as part of complete stroke workup Continue frequent neurological assessments Obtain stat CT brain without contrast for any acute neurological decline Continue to monitor/control blood pressure & blood glucose Continue to monitor telemetry closely Recommend ZioPatch at DC if no evidence of arrhythmia during inpatient monitoring Continue to monitor renal and hepatic function, keep euvolemic Metabolic workup should include hgbA1c, fasting lipids, homocysteine, TSH, D Dimer Recommend DAPT for at least 3 weeks Recommend load with clopidogrel 300mg now and continue 75mg PO daily Recommend confirm that patient responds to clopidogrel with platelet reactivity testing If patient is not responding to clopidogrel - then recommend utilizing ticagrelor 90mg PO BID Recommend high dose statin therapy indefinitely if tolerated Ok from neurology perspective for VTE prophylaxis PT/OT/SLT to eval and treat (2) Arterial ischemic stroke, vertebrobasilar, brainstem, acute: Recommend urgent referral to neuroendovascular team regarding intracranial and extracranial cerebrovascular atherosclerotic disease burden Continue aggressive DAPT and statin therapy (as outlined above) Telehealth Consultation Telehealth Information Telehealth Information: I performed this visit using a real-time telehealth connection between my location and the patients location ([facility]). After connecting through interactive tele-video, patient was identified by name and date of and/or wristband check.Patient (or authorized healthcare b2b outside sales representative) was informed that this was a telemedicine visit and it was being conducted confidentially over secure lines. My office door was closed and no one else was present in the room with me.Patient (or authorized healthcare b2b outside sales representative) provided consent to proceed with the visit, expressed an understanding of privacy and security of the telemedicine visit, and gave permission to have a hospital b2b outside sales representative in the room in order to assist with the visit and to conduct portions of the visit, as needed. I informed the patient (or authorized healthcare b2b outside sales representative) that I reviewed their record and presented the opportunity for them to ask any questions regarding the visit today. The patient agreed to participate. History of Present Illness Reason for Consultation: Acute ischemic stroke Requesting Physician: Dr. Antoine Attending Physician: Lasha Antoine MD History of Present Illness 83yo female presented with complaint of dizziness for at least the three days prior to presentation. She states feeling off balance but neurological exam reveals no evidence of dysmetria and/or dysdiadochokinesia in her extremities. She has yet to ambulate with therapy services. She is hard of hearing but able to answer all questions appropriately with help of family at bedside. She has undergone emergent stroke imaging including CT brain without contrast, personally reviewed today, revealing no overt evidence of hemorrhage. CT angiographic studies of head and neck, also personally reviewed today, revealing evidence of significant stenosis and occlusion with reconstitution of basilar artery. MRI brain confirms acute ischemic infarct in left pontine region. I have performed televideo consultation. She is alert & oriented; able to answer all questions appropriately, name objects on televideo monitor, repeat phrases and perform complex/embedded commands without deficit. Neurological exam is non lateralizing/nonfocal in terms of motor strength and coordination. NIHSS=0. I have explained my recommendation to continue aggressive dual antiplatelet and statin therapy; as well an ambulatory referral for neuroendovascular team to eval intracranial and extracranial atherosclerotic disease. Patient expresses reluctance to undergo further testing and/or invasive procedures. She is eager to return to her home and makes it clear that she did not want to come to the hospital but dis so due to persistent encouragement from family. Currently at bedside is her Daughter, Son in Law and Granddaughter. She has confirmed willingness to undergo televideo consultation in front of family member who were very helpful as, mentioned above patient has chronic hypoacusis. I have communicated my recommendations directly with patients RN and primary/hospitalist team Dr. Antoine. Allergies Allergy/AdvReac Type Severity Reaction Status Date / Time amoxicillin Allergy Unknown Unverified 11/07/23 11:04 bacitracin AdvReac Unknown Unverified 11/07/23 11:04 [From Triple Antibiotic] neomycin AdvReac Unknown Unverified 11/07/23 11:04 [From Triple Antibiotic] polymyxin B AdvReac Unknown Unverified 11/07/23 11:04 [From Triple Antibiotic] Home Medications Medication Instructions Recorded Confirmed Type albuterol sulfate 90 mcg/actuation 2 puff inhalation QID PRN 01/11/19 11/07/23 History aerosol inhaler Shortness Of Breath Or Wheezing simvastatin 20 mg tablet 20 mg PO Q2D 01/11/19 11/07/23 History Patient History Medical History (Updated 11/07/23 @ 19:03 by Fletcher C Cox, DO) Hyperlipidemia Family History (Updated 01/11/19 @ 16:44 by Bridgette Duran PA-C) Grandmother (Maternal) Stroke Father Lung cancer Mother Liver cancer Other Diabetes Social History (Updated 01/11/19 @ 16:43 by Bridgette Duran PA-C) Smoking Status: Never smoker Hx Alcohol Use: No Hx Substance Use: No Preferred Language: Italian Communication Ability: Effective 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 Oriented to person, place, and time. Fluency naming repetition and comprehension appear grossly intact. Affect remains appropriate. CN testing: I: Deferred II:Reports no changes in visual acuity III/IV/: No evidence of gaze preference, hippus, nystagmus or roving eye movements V: Facial sensation reportedly grossly intact to light touch bilaterally VII: Facial movements appear without evidence of asymmetry VIII: Hearing appears diminished -chronic hypoacusis IX/X: Palate is difficult to reliably visualize XI: Shoulder shrug appears symmetric/ grossly intact bilaterally XII: Tongue protrudes midline without evidence of biting Motor exam: Strength appears grossly intact/symmetric in all extremities Sensory: Sensation is reportedly grossly intact throughout Coordination: Finger to nose and heel to hernandez were intact. No apparent evidence of dysmetria or dysdiadochokinesia Reflexes: Deferred Gait: Deferred Results & Data Vital Signs (Past 12 Hours) Vital Signs Temp Pulse Pulse Resp BP BP Pulse Ox 11/07/23 17:55 57 L 11/07/23 17:19 36.6 C 57 L 19 162/64 H 95 11/07/23 17:10 11/07/23 16:09 36.6 C 57 L 18 162/64 H 95 11/07/23 14:32 53 L 18 133/62 96 11/07/23 12:46 54 L 18 153/65 H 95 11/07/23 11:30 54 L 16 148/53 H 98 11/07/23 09:59 58 L 20 140/88 97 11/07/23 08:41 52 L 11/07/23 08:30 59 L 20 167/72 H 97 11/07/23 08:25 95 11/07/23 08:03 36.0 C L 55 L 18 159/70 H 97 O2 Del Method O2 Flow Rate 11/07/23 17:55 11/07/23 17:19 Room Air 11/07/23 17:10 Room Air 11/07/23 16:09 Room Air 11/07/23 14:32 Room Air 11/07/23 12:46 Room Air 11/07/23 11:30 11/07/23 09:59 Room Air 11/07/23 08:41 11/07/23 08:30 Room Air 11/07/23 08:25 Room Air 0 11/07/23 08:03 Room Air Laboratory Results Abnormal lab results 11/07/23 Range/Units 08:22 [place] # (Auto) 0.67 H (0.11-0.59) K/uL Glucose 124 H (70-99(Fasting)) mg/dl Alkaline Phosphatase 109 H (34-104) U/L Diagnostic Findings Head CT 11/07/23 08:39 CT OF THE HEAD WITHOUT CONTRAST CLINICAL HISTORY: stroke suspected, dizzy/EOMI abnormal COMPARISON STUDY: No previous studies for comparison. TECHNIQUE: Helical axial images of the head were obtained without IV contrast. Automated exposure control was utilized for the study. A dose lowering technique was utilized adhering to the principles of ALARA. FINDINGS: No acute intracranial hemorrhage, midline shift or mass effect is present. Ventricular system is unremarkable. Basal cisterns are patent. There are no extra-axial collections. White matter hypodensity suggests small vessel d isease. 1.6 cm hypodense focus within the anterior limb of the right internal capsule and right caudate head favors an old infarct. A 1.3 cm hypodense focus within the left adrianne is noted on image 9 of 28. There are no significant calvarial abnormalities. IMPRESSION: 1. No acute intracranial hemorrhage or mass effect. 2. 1.3 cm hypodense focus within the left adrianne. This favors an acute to subacute infarct. MRI of the brain could be obtained for further evaluation. 3. 1.6 cm hypodense focus within the anterior limb of the right internal capsule and right caudate head. This favors an old infarct. ACT 112: Negative or not required by law. Electronically signed by: Sonny Pritchett M.D. 11/07/2023 10:01 AM Head CTA 11/07/23 08:39 CTA ANGIOGRAPHY OF THE HEAD CLINICAL HISTORY: neuro deficit, acute stroke suspected COMPARISON STUDY: No previous studies for comparison. TECHNIQUE: Helical axial images of the head were obtained following uneventful intravenous administration of 120 cc of Optiray. Sagittal and coronal reconstructions were viewed as well as maximal intensity projections on an independent 3-D workstation. Automated exposure control was utilized for the study. A dose lowering technique was utilized adhering to the principles of ALARA. FINDINGS: No acute intracranial hemorrhage is identified on the head CT which will be reported separately. A hypodense focus within the right caudate head and anterior limb of the right internal capsule favors an old infarct. A 1.3 cm hypodense focus within the left aspect of the adrianne is noted. There is moderate calcified plaque within the cavernous carotids without significant stenosis. No occlusion within the anterior circulation is identified. There is no intracranial aneurysm. The right vertebral artery ends in PICA. There is severe stenosis of the distal left vertebral artery. The proximal basilar artery is diminutive with occlusion of the mid basilar artery with distal reconstitution, likely through bilateral posterior communicating arteries which largely supplied the bilateral posterior cerebral arteries. Superior cerebellar arteries are patent. The posterior inferior cerebellar arteries are patent. The anterior inferior cerebellar arteries appear diminutive. Major dural sinuses are patent. IMPRESSION: 1. Severe stenosis of the distal left vertebral and proximal basilar artery with age indeterminate, although probably chronic, occlusion of the basilar artery with distal reconstitution through bilateral posterior communicating arteries which largely supply the bilateral posterior cerebral arteries. Diminutive basilar artery branches. 2. No vessel occlusion within the anterior circulation. No intracranial aneurysm. 3. 1.3 cm left pontine hypodense focus suggestive of an acute to subacute infarct. Hypodense focus within the right caudate head and anterior limb of the right internal capsule is age indeterminate but favors an old infarct. ACT 112: Negative or not required by law. Electronically signed by: Sonny Pritchett M.D. 11/07/2023 10:10 AM Neck CTA 11/07/23 08:39 CT angio neck with con CLINICAL HISTORY: neuro deficit, acute stroke suspected TECHNIQUE: CT angiography of the neck was performed following intravenous administration of iodinated contrast. Coronal and sagittal MIPS were obtained from the axial data set and were submitted for review. Automated dose lowering techniques and/or adjustment according to patient size were utilized for this examination. All measurements were calculated based on NASCET criteria. CT DOSE: 1021.92 mGy.cm Comparison: None available at the time of this dictation. FINDINGS: Small thyroid nodules are seen which do not require follow-up by ACR criteria. CTA Neck: A 3 vessel aortic arch is shown. There is no significant atherosclerotic plaque in the aortic arch or the origins of the innominate, left common carotid, and left subclavian arteries. The common carotid, external carotid, cervical segments of the internal carotid arteries, and the cervical segments of the vertebral arteries are patent without hemodynamically s ignificant stenosis. The left vertebral artery is dominant. Right vertebral artery terminates as PICA. Multifocal narrowing of the basilar artery is seen, likely chronic. 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 Assessment of stenosis of the internal carotid arteries is based on NASCET criteria. ACT 112: Negative or not required by law. Electronically signed by: Scot Ayala M.D. 11/07/2023 10:08 AM Brain MRI 11/07/23 10:52 MRI OF THE BRAIN WITHOUT CONTRAST CLINICAL HISTORY: Acute cerebrovascular accident. COMPARISON STUDY: Head CT and CTA of the head performed earlier today. TECHNIQUE: Utilizing a 1.5 Sondra magnet and dedicated coil, multiplanar, multiecho imaging of the brain was performed without IV contrast. FINDINGS: A 1.8 x 0.9 cm focus restricted diffusion within the left superior aspect of the adrianne corresponds to the finding on head CT performed earlier today. This is hypointense on the ADC map. Associated T2 hyperintensity is present. There is no evidence for hemorrhage. No mass effect is present. No additional acute infarcts are present. Ventricular system is normal. Basal cisterns are patent. There are no extra-axial collections. Old infarct within the anterior limb of the right basal ganglia and right caudate head is noted. White matter T2 hyperintense foci suggest small vessel disease. No intracranial masses are identified on this unenhanced examination. Calvarial signal is normal. IMPRESSION: 1.9 x 0.9 cm acute infarct within the left superior aspect of the adrianne. No associated hemorrhage. No evidence for mass effect. No additional acute infarcts. ACT 112: Negative or not required by law. Electronically signed by: Sonny Pritchett M.D. 11/07/2023 1:00 PM Medications Administered Home Medications Medication Instructions Recorded Confirmed Last Taken albuterol sulfate 90 mcg/actuation 2 puff inhalation QID PRN 01/11/19 11/07/23 Unknown aerosol inhaler Shortness Of Breath Or Wheezing simvastatin 20 mg tablet 20 mg PO Q2D 01/11/19 11/07/23 01/09/19 Active Medications Generic Name Dose Route Start Last Admin Trade Name Freq PRN Reason Stop Dose Admin Atorvastatin Calcium 40 mg 11/07/23 16:22 11/07/23 18:25 Atorvastatin 40 Mg Tab PO 12/07/23 16:21 40 mg QAM EVELYN Administration Sodium Chloride 1,000 mls @ 60 mls/hr 11/07/23 16:22 11/07/23 16:49 Nss IV 11/08/23 09:01 60 mls/hr .[id number] EVELYN Administration Pantoprazole Sodium 40 mg 11/07/23 16:22 11/07/23 18:25 Pantoprazole 40 Mg Tab PO 11/10/23 09:01 40 mg QAM EVELYN Administration
--- OUTSIDE RECORDS SUMMARY | 2023-11-07 19:44 | External Medical Summary | Summary of Care ---
Author Name Unknown Organization [facility] Address [address] [place] [address] Phone [phone] Care Team Providers Care Engine Builder Name Role Phone Gigi Sarmiento MD Primary Care Provider [phone]- [phone] Encounter Details Date Type Department Care Team (Late st Contact Info) Description 10/12/2023 Orders Only [facility] [address] [place] [address] Gigi Sarmiento MD [address] [place] [address] Allergies Active Allergy Reactions Criticality Noted Date Comments Amoxicillin 11/02/1999 Other - Drugs Other (Please comment) High 06/20/2010 tederal--weakness, could not walk Neomycin-Bacitracin Zn-Polymyx Rash Low 06/20/2010 documented as of this encounter (statuses as of 10/12/2023) Medications Medication Sig Dispensed Refills Start Date End Date Status ALBUTEROL 90 MCG/ACT IN AERSIndications:Asthma , severity to be determined two puffs 4 times a day 1 Inhaler 5 08/24/2011 Active acetaminophen (TYLENOL) 325 MG Tablet Take 1 Tablet by mouth every 6 hours as needed for Pain. 0 Active Ibuprofen 200 MG Capsule Take 1 Capsule by mouth every 4 hours as needed for Pain. 0 Active Meloxicam 7.5 MG Tablet Take 1 Tablet by mouth in the morning. 0 Active Simvastatin 20 MG Oral Tablet (Zocor)Indications:Mix ed dyslipidemia TAKE 1 TABLET BY MOUTH EVERY OTHER DAY 50 Tablet 3 09/10/2023 Active Azithromycin 250 MG Oral Tablet (Zithromax) Two pills by mouth on first day, then one pill a day for 4 days as rescue kit 6 Tablet 3 09/13/2023 Active predniSONE 10 MG Oral Tablet (Deltasone) Take 4 tabs daily for 2 days 3 tabs daily for 2 days 2 tabs daily for 2 days 1 tab daily for 2 days as needed for rescue kit 20 Tablet 3 09/13/2023 Active documented as of this encounter (statuses as of 10/12/2023) Active Problems Problem Noted Date Diagnosed Date Extrinsic allergic asthma, u nspecified asthma severity, uncomplicated 04/11/2019 Degenerative lumbar spinal stenosis 01/16/2019 Dyslipidemia, goal LDL below 100 05/16/2013 documented as of this encounter (statuses as of 10/12/2023) Resolved Problems Problem Noted Date Diagnosed Date Resolved Date Prediabetes 07/24/2017 04/03/2018 Overview: Per Prediabetes protocol #1 PLANTAR FASCIITIS, LEFT FOOT 08/16/2010 03/19/2017 Pain in limb 08/16/2010 03/19/2017 Flat foot(734) 08/16/2010 03/19/2017 Dyslipidemia, goal to be determined 05/27/2009 05/16/2013 Overview: Per Lipid Taxonomy. ADVANCE DIRECTIVE INFORMATION 06/06/2006 04/03/2018 Overview: No, Advance Directive brochure given to patient. Allergic rhinitis 02/03/2003 01/16/2019 Mixed dyslipidemia 05/31/2000 9 Overview: Per Lipid Taxonomy. EXT ASTHMA W-O STAT ASTH 01/2019 documented as of this encounter (statuses as of 10/12/2023) Immunizations Name Administration Dates Next Due COVID-19 mRNA, LNP-s, No Pre serve, 2-Dose Series (Moderna) 11/16/2020,10/19/2020 documented as of this encounter Social History Tobacco Use Types Packs/Day Years Used Date Smoking Tobacco: Passive Smo ke Exposure - Never Smoker Smokeless Tobacco: Never Alcohol Use Standard Drinks/Week Comments No 0 (1 standard drink = 0.6 oz pur e alcohol) PHQ-2 Answer Date Recorded PHQ Adult Total Score 0 09/11/2022 Hunger Vital Sign Answer Date Recorded Worried About Running Out of Food in the Last Ye ar Never true 01/18/2019 Ran Out of Food in the Last Year Never true 01/18/2019 Sex and Gender Information Value Date Recorded Sex Assigned at Not on file Gender Identity Not on file Sexual Orientation Not on file Job Start Date Occupation Industry Not on file Not on file Not on file documented as of this encounter Plan of Treatment Upcoming Encounters Date Type Department Care Team (Late st Contact Info) Description 09/18/2024 1:20 PM EDT Office Visit [facility] [address] [place] [address] Gigi Sarmiento MD [address] [place] [address] Health Maintenance Due Date Last Done Comments DXA Scan 1940 Pneumococcal Vaccine: 65+ Years (1 of 2 - PCV) 1944 Zoster Vaccines (1 of 2) 1988 DTaP,Tdap,and Td Vaccines (1 - Tdap) 05/31/2000 05/30/2000 COVID-19 Vaccine (3 - 2022-2 4 season) 2023 11/16/2020, 10/19/2020 Depression Screening 09/12/2023 09/11/2022 Influenza Vaccine (FLU shot) (Season Ended) 2024 GARDASIL-HPV IMMUNIZATION SERIES Aged Out No longer eligible b ased on patient's age to complete this topic Hepatitis B Aged Out No longer eligi ble based on patient's age to complete this topic MENINGOCOCCAL (MENACTRA/MENVEO) Aged Out No longer eligible b ased on patient's age to complete this topic documented as of this encounter Medical Devices Not on filedocumented as of this encounter Procedures Procedure Name Priority Date/Time Associated Diagnosis Comments MAMMOGRAM SCREENING BILATERAL Routine 10/11/2023 documented in this encounter Results * MAMMOGRAM SCREENING BILATERAL (10/11/2023) Anatomical Region Laterality Modality Breast Bilateral Other 10/11/2023 Gigi Sarmiento MD RAD MAMMOGRAPHY documented in this encounter Care Teams Engine Builder Relationship Specialty Start Date End Date Gigi Sarmiento MD [address] [place] [address] PCP - General 03/29/00 documented as of this encounter
[2023-11-07] MEDS ORDERED: CLOPIDOGREL BISULFATE 300 MG TAB PO STA (19:52)
[2023-11-07] MEDS: CLOPIDOGREL BISULFATE 300 MG TAB PO STA (20:17)
[2023-11-07] MEDS: HEPARIN SOD 5,000 UNIT/0.5 ML VIAL SQ SCH (20:17)
[2023-11-07] MEDS: CALCIUM CARBONATE 500 MG CHEWABLE TAB PO PRN (20:17)
[2023-11-07 23:18] LABS: Appearance Urine Clear (Clear); Bacteria Urine Automated None Seen (None Seen); Bilirubin Urine Negative (Negative); Blood Urine Negative (Negative); Cast Urine Automated 0-2 /lpf (0-2); Color Urine Yellow; Epithelial Cell Urine Auto 0-2 /hpf (0-2); Glucose Urine UA Negative (Negative); Ketones Urine Trace (Negative); Leukocyte Esterase Urine 1+ (Negative); Nitrite Urine Negative (Negative); Protein Urine Negative (Negative); RBC Urine Automated 0-2 /hpf (0-2); Specific Gravity Urine 1.041 (1.000-1.030); Urobilinogen Urine Negative (Negative); pH Urine 7.5 (4.5-7.5)
[2023-11-08 06:57] LABS: Basophils # (auto) 0.05 K/uL (0.00-0.20); Basophils % (auto) 0.8 %; Eosinophils # (auto) 0.37 K/uL (0.00-0.50); Eosinophils % (auto) 6.3 %; Hemoglobin 11.9 g/dl (12.0-16.0); Immature Granulocytes # (auto) 0.02 K/uL (0.01-0.20); Immature Granulocytes % (auto) 0.3 %; Lymphocytes % (auto) 30.4 %; Mean Corpuscular Hemoglobin 29.5 pg (25.0-34.0); Mean Corpuscular Hgb Conc 33.1 g/dL (32.0-36.0); Mean Corpuscular Volume 89.3 fL (80.0-100.0); Mean Platelet Volume 11.5 fL (9.4-12.4); Monocytes # (auto) 0.59 K/uL (0.11-0.59); Neutrophils # (auto) 3.09 K/uL (1.40-6.50); Neutrophils % (auto) 52.2 %; Platelet Count 162 K/uL (130-400); RDW Coefficient of Variation 12.9 % (11.5-14.5); RDW Standard Deviation 42.5 fL (36.4-46.3); Red Blood Count 4.03 M/uL (4.20-5.40); White Blood Count 5.92 K/ul (4.8-10.8)
[2023-11-08 07:04] LABS: BUN Creatinine Ratio 19.7 (10-20); Calcium 8.9 mg/dl (8.6-10.3); Creatinine Clr Calc Pharmacy 46.2 ml/min; Est GFR (African American) 93.4 ml/min; Est GFR (Non-African American) 80.6 ml/min; Potassium 4.2 mmol/L (3.5-5.1)
[2023-11-08 07:08] LABS: Estimated Average Glucose 123 mg/dl; Hemoglobin A1C 5.9 % (4.5-5.6)
[2023-11-08] MEDS: CLOPIDOGREL BISULFATE 75 MG TAB PO SCH (08:11)
[2023-11-08] MEDS: ASPIRIN 81 MG ECTAB PO SCH (08:11)
--- NOTE | 2023-11-08 10:22 | Pharmacy Report ---
- Date of Service November 08, 2023 - Pharmacy CVA/TIA Medication Review Medications to Prevent Stroke handout has been added to the patients discharge packet. Antiplatelet(s) * DAPT x 3 weeks - Aspirin 81mg + Clopidogrel 75mg (after loading dose of 300mg - received 11/06) Cholesterol * High intensity statin: atorvastatin 40 mg daily DVT Prophylaxis * Heparin SQ Therapeutic Anticoagulation * No history of Afib/Aflutter noted Type 2 Diabetes * Patient does not have T2DM
[2023-11-08 12:37] LABS: D Dimer 490 ug/L FEU (0-500)
--- NOTE | 2023-11-08 13:19 | Hospitalist Progress Note ---
Date of Service November 08, 2023 Assessment & Plan (1) Acute CVA (cerebrovascular accident): Plan: Patient is an 83-year-old female with history of asthma, dyslipidemia, lumbar spine stenosis Presenting with dizziness, blurring of vision, loss of balance x 3 days. 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 This is hypointense on the ADC map. Associated T2 hyperintensity is present. There is no evidence for hemorrhage. No mass effect is present. No additional acute infarcts are present. Ventricular system is normal. Basal cisterns are patent. There are no extra-axial collections. Old infarct within the anterior limb of the right basal ganglia and right caudate head is noted. White matter T2 hyperintense foci suggest small vessel disease. No intracranial masses are identified on this unenhanced examination. Calvarial signal is normal. IMPRESSION: 1.9 x 0.9 cm acute infarct within the left superior aspect of the adrianne. No associated hemorrhage. No evidence for mass effect. No additional acute infarcts. EEG: Pending Echocardiogram: Ventricular ejection fraction 55 to 60%, grade 2 diastolic dysfunction, No significant aortic valve stenosis, No evidence for atrial septal defect Monitor in telemetry unit to rule out underlying A-fib: none so far Check lipid panel and A1c: reviewed Evaluated by neurology service: Recommend continued stroke work up to include the following: Metabolic workup should include hgbA1c, fasting lipids, homocysteine, TSH, D Dimer Recommend DAPT for at least 3 weeks Recommend load with clopidogrel 300mg now and continue 75mg PO daily Recommend confirm that patient responds to clopidogrel with platelet reactivity testing If patient is not responding to clopidogrel - then recommend utilizing ticagrelor 90mg PO BID Recommend high dose statin therapy indefinitely if tolerated Recommend ZioPatch at DC if no evidence of arrhythmia during inpatient monitoring Ok from neurology perspective for VTE prophylaxis PT/OT/SLT to eval and treat Recommend as of today, patient prefers to go home with home health services including physical therapy Discussed with patient's daughter at the bedside (2) Arterial ischemic stroke, vertebrobasilar, brainstem, acute: Recommend urgent referral to neuroendovascular team regarding intracranial and extracranial cerebrovascular atherosclerotic disease burden Continue aggressive DAPT and statin therapy (as outlined above) Left lateral chest wall pain Patient describes as indigestion, mostly occurring after meal Troponin x 1 negative , EKG no signs of acute infarct/ischemia Trend troponins, echocardiogram Trial of Protonix daily Troponins negative ACS ruled out Asthma Not in exacerbation Continue usual inhaler Dyslipidemia Check lipid panel: Reviewed Increase usual Lipitor 20 to 40 mg daily History of lumbar spine stenosis Denies back pain DVT prophylaxis Heparin SQ every 12 CODE STATUS Disposition Lives at home PT and OT evaluation ordered Admission and Anticipated Discharge Date Admission Date: November 07, 2023 Subjective Follow-up for acute CVA, etc. Seen resting in bed, patient's daughter at the bedside, assisting patient with meal Oriented x 3, not in distress, comfortable Patient states she feels better today overall No headache, dizziness, nausea vomiting, blurring of vision Still feeling off balance while ambulating Speech mostly back to baseline No other new symptoms Patient expressed that she would like to go home soon as possible Review of Systems Review of Systems: all noted and negative except for above Physical Exam Physical Exam: General- oriented x 3, not in distress, speaks in sentences with no effort or accessory muscle use Eyes- anicteric Neck- no JVD Lungs- clear breath sounds bilaterally, no rales/wheezes Heart- normal rate, regular rhythm; no murmurs Abdomen- normal bowel sounds, nondistended, soft, nontender Extremities- no pretibial edema, no calf tenderness Neuro- alert, oriented x 3; no new gross focal neurologic deficits Skin- warm & dry Results & Data Results & Data Vital Signs (Past 12 Hours) Vital Signs Temp Pulse Pulse Resp BP Pulse Ox O2 Del Method 11/08/23 11:47 36.6 C 63 17 153/66 H 97 Room Air 11/08/23 08:20 36.6 C 58 L 18 152/71 H 97 Room Air 11/08/23 07:41 51 L 11/08/23 07:15 Room Air 11/08/23 03:05 36.8 C 55 L 23 166/71 H 95 Room Air all noted and reviewed including below
[2023-11-09 07:39] LABS: Basophils # (auto) 0.04 K/uL (0.00-0.20); Basophils % (auto) 0.5 %; Eosinophils # (auto) 0.26 K/uL (0.00-0.50); Eosinophils % (auto) 3.5 %; Hematocrit (blood only) 36.9 % (37.0-47.0); Hemoglobin 12.3 g/dl (12.0-16.0); Immature Granulocytes # (auto) 0.02 K/uL (0.01-0.20); Immature Granulocytes % (auto) 0.3 %; Lymphocytes % (auto) 21.4 %; Mean Corpuscular Hemoglobin 29.6 pg (25.0-34.0); Mean Corpuscular Hgb Conc 33.3 g/dL (32.0-36.0); Mean Corpuscular Volume 88.7 fL (80.0-100.0); Mean Platelet Volume 11.4 fL (9.4-12.4); Monocytes # (auto) 0.93 K/uL (0.11-0.59); Monocytes % (auto) 12.5 %; Neutrophils # (auto) 4.61 K/uL (1.40-6.50); Neutrophils % (auto) 61.8 %; Platelet Count 160 K/uL (130-400); RDW Coefficient of Variation 12.8 % (11.5-14.5); RDW Standard Deviation 41.5 fL (36.4-46.3); Red Blood Count 4.16 M/uL (4.20-5.40); White Blood Count 7.46 K/ul (4.8-10.8)
[2023-11-09 07:55] LABS: BUN Creatinine Ratio 23.2 (10-20); Calcium 9.4 mg/dl (8.6-10.3); Est GFR (Non-African American) 79.4 ml/min; Potassium 4.2 mmol/L (3.5-5.1)
--- NOTE | 2023-11-09 14:39 | Hospitalist Progress Note ---
Date of Service November 09, 2023 Assessment & Plan (1) Acute CVA (cerebrovascular accident): Plan: 83-year-old female with history of asthma, dyslipidemia, lumbar spine stenosis presented 11/06 with dizziness, blurring of vision, loss of balance x 3 days. 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 Also noted to have an episode of staring last Sunday. Admitting MRI brain: 1.9 x 0.9 cm acute infarct in left superior aspect of the adrianne. No associated hemorrhage. 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 Diminutive basilar artery branches. LDL 62, A1c 5.9.Echo with EF of 55 to 60%, grade 2 diastolic dysfunction, no interatrial septum defect. EEG pending Monitor over telemetry, and Zio patch monitoring on discharge. Neurology evaluated: DAPT for 3 weeks, started 11/07. Outpatient platelet reactivity testing. Outpatient but urgent neuroendovascular team evaluation. Continue DAPT and atorvastatin 40 mg daily. No omeprazole while on clopidogrel. PT/OT recommending rehab, patient now agreeable. Patient with no trouble swallowing food. Left lateral chest wall pain: Patient describes as indigestion, mostly occurring after meal. Troponin Trends negative , EKG no signs of acute infarct/ischemia. Echo reviewed. Trial of Protonix daily. Asthma: Not in exacerbation. Continue usual inhaler Dyslipidemia: Lipid panel reviewed. Patient put on atorvastatin 40 mg daily. History of lumbar spine stenosis: Denies back pain DVT prophylaxis: Heparin SQ every 12 CODE STATUS: Full Disposition:pt/ot, cm to assit, likely rehab. Admission and Anticipated Discharge Date Admission Date: November 07, 2023 Subjective Patient was seen and examined at bedside. Patient was lying in bed, on room air, NAD, resting comfortably. Patient denies any new neurological signs and symptoms, reports no headache or dizziness, reports eating okay and moving bowels okay. Patient reports her strength getting better. Patient's daughter Sara at bedside was also updated on plan of care. 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 Physical Exam Physical Exam: General- oriented x 3, not in distress, speaks in sentences with no effort or accessory muscle use Eyes- anicteric Neck- no JVD Lungs- clear breath sounds bilaterally, no rales/wheezes Heart- normal rate, regular rhythm; no murmurs Abdomen- normal bowel sounds, nondistended, soft, nontender Extremities- no pretibial edema, no calf tenderness Neuro- alert, oriented x 3; no new gross focal neurologic deficits Skin- warm & dry Results & Data Results & Data Vital Signs (Past 12 Hours) Vital Signs Temp Pulse Pulse Resp BP Pulse Ox O2 Del Method 11/09/23 11:00 36.7 C 90 18 131/70 95 Room Air 11/09/23 08:10 36.7 C 69 16 149/77 H 96 Room Air 11/09/23 05:55 61 11/09/23 04:00 36.6 C 68 18 150/73 H 95 Room Air
[2023-11-09 15:37] LABS: Folate (Folic Acid),Ser orPlas 9.21 ng/ml (>5.38)
[2023-11-10 06:41] LABS: Basophils # (auto) 0.03 K/uL (0.00-0.20); Basophils % (auto) 0.4 %; Eosinophils # (auto) 0.22 K/uL (0.00-0.50); Eosinophils % (auto) 2.9 %; Hematocrit (blood only) 38.3 % (37.0-47.0); Hemoglobin 12.9 g/dl (12.0-16.0); Immature Granulocytes # (auto) 0.04 K/uL (0.01-0.20); Immature Granulocytes % (auto) 0.5 %; Lymphocytes # (auto) 2.07 K/uL (1.20-3.40); Lymphocytes % (auto) 27.2 %; Mean Corpuscular Hgb Conc 33.7 g/dL (32.0-36.0); Mean Corpuscular Volume 89.1 fL (80.0-100.0); Mean Platelet Volume 11.4 fL (9.4-12.4); Monocytes # (auto) 1.13 K/uL (0.11-0.59); Monocytes % (auto) 14.8 %; Neutrophils # (auto) 4.13 K/uL (1.40-6.50); Neutrophils % (auto) 54.2 %; Platelet Count 166 K/uL (130-400); RDW Coefficient of Variation 12.8 % (11.5-14.5); RDW Standard Deviation 41.9 fL (36.4-46.3); White Blood Count 7.62 K/ul (4.8-10.8)
[2023-11-10 08:14] LABS: BUN Creatinine Ratio 26.6 (10-20); Calcium 9.6 mg/dl (8.6-10.3); Creatinine Clr Calc Pharmacy 38.4 ml/min; Est GFR (African American) 79.1 ml/min; Est GFR (Non-African American) 68.3 ml/min; Phosphorus 2.9 mg/dl (2.5-4.9)
--- NOTE | 2023-11-10 12:32 | Discharge Summary ---
Date of Service November 10, 2023 Admission HPI Per Admitting Provider Patient is an 83-year-old female with history of asthma, dyslipidemia, lumbar spine stenosis Presenting with dizziness, blurring of vision, loss of balance x 3 days. Patient is a relatively active 83 old female at her usual state of health until last Sunday when patient was noted by granddaughter to be losing her balance while walking. She was then noticed to be staring blankly for about 1 minute before responding to her granddaughter. No seizure-like activity noted. Yesterday, patient's loss of balance persisted, but was also associated with some diplopia, and slurred speech. Above symptoms persisted prompting consult at the ER. At the ER, patient presented with relatively stable vital signs. CT head showing left pontine acute infarct and right internal capsule and caudate head Chronic Infarcts. 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 Since symptom started 3 days ago, stroke alert was not called and thrombolytics not administered Patient Admitted for Further Evaluation and Management. On exam, patient was seen resting in bed comfortable, not in distress She reports having some right-sided weakness but no other focal neurologic deficits. She reports having some "indigestion", sharp pain on the left side which has since resolved. Patient reports having similar type of discomfort intermittently at home, mostly after eating. Admission Exam Per Admitting Provider n/a at the time of signing this note. Principal Diagnosis Acute cerebrovascular accident, left pontine infarct Arterial ischemic stroke, vertebrobasilar, brainstem, acute Discharge Exam General- oriented x 3, not in distress, speaks in sentences with no effort or accessory muscle use Eyes- anicteric Neck- no JVD Lungs- clear breath sounds bilaterally, no rales/wheezes Heart- normal rate, regular rhythm; no murmurs Abdomen- normal bowel sounds, nondistended, soft, nontender Extremities- no pretibial edema, no calf tenderness Neuro- alert, oriented x 3; no new gross focal neurologic deficits Skin- warm & dry Discharge Data Allergies Allergy/AdvReac Type Severity Reaction Status Date / Time amoxicillin Allergy Unknown Unverified 11/07/23 11:04 bacitracin AdvReac Unknown Unverified 11/07/23 11:04 [From Triple Antibiotic] neomycin AdvReac Unknown Unverified 11/07/23 11:04 [From Triple Antibiotic] polymyxin B AdvReac Unknown Unverified 11/07/23 11:04 [From Triple Antibiotic] Consultations 11/07/23 10:38 ED Decision to Admit Stat 11/07/23 16:22 Consult Neurology Routine Consult Vascular Surgery Routine Ordered Studies 11/07/23 08:39 CT angio head w con Stat CT angio neck with con Stat CT head/brain wo con Stat 11/07/23 10:52 MRI Brain [MR brain wo con] Urgent Hospital Course (1) Acute CVA (cerebrovascular accident): 83-year-old female with history of asthma, dyslipidemia, lumbar spine stenosis presented 11/06 with dizziness, blurring of vision, loss of balance x 3 days. 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 Also noted to have an episode of staring last Sunday. Admitting MRI brain: 1.9 x 0.9 cm acute infarct in left superior aspect of the adrianne. No associated hemorrhage. 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 Diminutive basilar artery branches. LDL 62, A1c 5.9.Echo with EF of 55 to 60%, grade 2 diastolic dysfunction, no interatrial septum defect. EEG pending Zio patch monitoring on discharge. Neurology evaluated: DAPT for 3 weeks, started 11/07. Outpatient platelet reactivity testing. Outpatient but urgent neuroendovascular team evaluation. Continue DAPT and atorvastatin 40 mg daily. No omeprazole while on clopidogrel. PT/OT recommending rehab, patient now agreeable. Patient with no trouble swallowing food. Left lateral chest wall pain: Patient describes as indigestion, mostly occurring after meal. Troponin Trends negative , EKG no signs of acute infarct/ischemia. Echo reviewed. Prn Tums. Asthma: Not in exacerbation. Continue usual inhaler Dyslipidemia: Lipid panel reviewed. Patient put on atorvastatin 40 mg daily. History of lumbar spine stenosis: Denies back pain DVT prophylaxis: Heparin SQ every 12 CODE STATUS: Full Patient is being discharged to [facility] with following instruction at the point of discharge: Follow-up with your primary care physician within a week time and likely you will need labs CBC/CMP/magnesium/phosphorus. You will be discharged on aspirin and Plavix for total of 21 days counting from 11/08/2023. After 21 days, drop Plavix. No omeprazole while on Plavix. C/w baby aspirin daily. Follow-up with neurology in 2 to 4 weeks time upon discharge. You will need urgent neuroendovascular team evaluation within a week time to 2 weeks time. Coordinate with your PCP office to set up the referral. You will also need outpatient platelet reactivity testing, coordinate with the neurology office to set up the test. You will need Zio patch monitoring upon discharge, coordinate with your PCP office to set up the test. For your indigestion, you can use [id number] Tums as needed for symptom relief. Take your medications as prescribed. Please make sure that you are able to get your medications today by calling your pharmacy before you leave the hospital so that your treatment continuity is not broken. Home Health Attestation I certify that this patient is under my care and that I, or a physicians special education educational assistant working with me, had a face to-face encounter that meets the home health vmra-zh-wose encounter requirements with this patient. The encounter with the patient was in whole, or in part, for the following medical condition, which is the primary reason for home health care (list medical condition): I certify that, based on my findings, the following services are medically necessary home health services: My clinical findings support the need for the above services because: Further, I certify that my clinical findings support that this patient is homebound (i.e. absences from home require considerable and taxing effort and are for medical reasons or jainism services or infrequently or of short duration when for other reasons) because: Certification for Home Health Services: Based on the above findings, I certify that this patient is confined to the home and needs intermittent [facility] care, physical therapy and/or speech therapy or continues to need occupational therapy. The patient is under my care, and I have initiated the establishment of the plan of care. This patient will be followed by a physician who will periodically review the plan of care. Total Time Total Time Spent Total Time Spent (In Minutes): 45 Discharge Plan Discharge Items Patient Disposition: Transfer Inpatient Rehab Fac Reason For Visit: ACUTE CVA Discharge Diagnosis: Acute cerebrovascular accident, left pontine infarct Arterial ischemic stroke, vertebrobasilar, brainstem, acute Activity: As commented below Activity Comment: per PT and OT recommendation. Non-emergency contact: Primary Care Provider Call non-emergency contact if: you have any medication questions, your symptoms worsen and your temperature is above 101.5 Follow-up/Referrals: [facility] [Other] (The Neurosurgery office will contact you for an evaluation/treatment.) Gigi Sarmiento MD [Primary Care Provider] - Janee Wolfe MD [Physician] - (Date & Time 12/07/2023 8:00 AM Provider Janee Wolfe MD Department Neurology [facility] ) Diet: Heart Healthy Addtl Attending Provider Instructions: Follow-up with your primary care physician within a week time and likely you will need labs CBC/CMP/magnesium/phosphorus. You will be discharged on aspirin and Plavix for total of 21 days counting from 11/08/2023. After 21 days, drop Plavix. No omeprazole while on Plavix. C/w baby aspirin daily. Follow-up with neurology in 2 to 4 weeks time upon discharge. You will need urgent neuroendovascular team evaluation within a week time to 2 weeks time. Coordinate with your PCP office to set up the referral. You will also need outpatient platelet reactivity testing, coordinate with the neurology office to set up the test. You will need Zio patch monitoring upon discharge, coordinate with your PCP office to set up the test. For your indigestion, you can use [id number] Tums as needed for symptom relief. Take your medications as prescribed. Please make sure that you are able to get your medications today by calling your pharmacy before you leave the hospital so that your treatment continuity is not broken. Pending Studies at Discharge: No Stand-Alone Forms: My [facility] [employer] Medications to Prevent Stroke Skilled Items Patient informed of condition?: Yes DNR: No Discharge Level of Care: Acute rehab Communicable Disease: No Discharge Prognosis: Stable Lines: None Urinary Catheter: No Medications and DC Order Prescriptions: New clopidogrel 75 mg Tablet 75 mg PO QAM 18 Days Qty: 18 0RF atorvastatin 40 mg Tablet 40 mg PO QAM Qty: 30 0RF aspirin 81 mg Tablet,Delayed Release (Dr/Ec) 81 mg PO QAM Qty: 30 0RF calcium carbonate [Tums] 200 mg calcium (500 mg) Tablet,Chewable 500 mg PO Q6H PRN (Reason: dyspepsia) Qty: 30 0RF Continued albuterol sulfate 90 mcg/actuation Hfa Aerosol Inhaler 2 puff INHALATION QID PRN (Reason: Shortness Of Breath Or Wheezing) Discontinued simvastatin 20 mg tablet 20 mg PO Q2D Discharge Orders: Discharge Order (Routine); Ordered 11/10/23 Ordered By: Rabia Vasques Admission Data Admit Date/Time: 11/07/23 10:45 Attending Provider: Rabia Vasques Admit Provider: Lasha Antoine Primary Care Provider: Gigi Sarmiento Other Providers: Lasha Antoine; Janee Blanco; Jacek Pathak; Janee Wolfe; Gt August; Heraclio Spencer; Titi Nash; Fletcher Kelley; Shi Maguire; Boo Hollins; Delfin Gates; Wayne Salvador; Yosef Lopez; Denise Casey; [place]; Fletcher Cox; Chris Salinas; [facility]
== END 2023-11-10 13:34 | DRG 65 ==
LOC: ED 08:00 → SUATTDRO 10:45 → EDINP 10:45 → 2N 16:08